=== PATIENT | male | born 1970 | race Caucasian/White ===

== ENCOUNTER 2022-02-01 07:28 | Day surgery (SDC) | payer OTHER, SELFPAY ==
[2022-02-01] VITALS (7 sets, daily range): BP systolic 87–122; BP diastolic 49–79; PULSE 51–67; RESP 16–18; TEMP 36.4–37; O2SAT 98–100; BMI 23.3
[2022-02-01] MEDS: Lactated Ringers 1,000 ML 15 ML IV (07:45)
--- NOTE | 2022-02-01 08:45 | H&P.OPEN ---
HPI - General HPI Narrative BARRY MAHAJAN, is a 51 M who presents for screening colonoscopy. Patient has never had a screening colonoscopy in the past. He denies any abdominal pain or blood in the stool. He has a family history only in his grandfather of colon cancer [facility] Medical History Alcohol use Anxiety Gastric reflux High cholesterol History of stress test Non-smoker Home Medications alprazolam 0.5 mg PO PRN PRN 01/29/22 [History Last Taken Unknown] atorvastatin 30 mg PO DAILY 01/29/22 [History Last Taken Unknown] coenzyme Q10 [CoQ-10] 100 mg PO DAILY 01/29/22 [History Last Taken 01/27/22] melatonin 10 mg PO DAILY 01/29/22 [History Last Taken Unknown] multivitamin 1 tab PO DAILY 01/29/22 [History Last Taken Unknown] omega-3 fatty acids [Fish Oil] 1,000 mg PO DAILY 01/29/22 [History Last Taken 01/27/22] turmeric 400 mg PO DAILY 01/29/22 [History Last Taken 01/27/22] Allergy/AdvReac Type Severity Reaction Status Date / Time No Known Allergies Allergy Verified 02/01/22 07:46 Surgical History (Updated 01/29/22 @ 14:10 by Laurie Pompa) Hx of [facility] Social History Smoking Status: Never smoker Past Medical/Surgical History Planned Operation Planned Operative Procedure/s: COLONOSCOPY Previous Hospitalizations/Surgeries HX Hospitalizations: No Any Problems With Anesthesia: No You/Your Family Experience Fever (Hyperthermia) With Anes: No Cholinesterase deficiency: No Cardiovascular Hx Hypertension: No Respiratory Hx Sleep Apnea: No Hx Respiratory Tract Infection/Cold (presently): No Do You Snore Loudly (louder than talking or can be heard): Yes Do You Often Feel Tired/ Fatigued/ Sleepy Dring Daytime?: No Has Anyone Observed You Stop Breathing During Sleep?: No Result (for STOP score): Negative Smoking Status: Never smoker Neurological Does patient have nerve stimulator: No Miscellaneous Recent Exposure to Contagious Disease: No Allergies No Known Allergies Allergy (Verified 02/01/22 07:46) Discharge Is Pt Admitted From a Group Home, or a Detention: No After D/C, Where Do you Plan to Go: Return Home Vital Signs Vital Signs Vital Signs: 02/01/22 07:47 Temperature 97.5 F L Temperature Source Temporal Pulse Rate 67 Respiratory Rate 18 Respiratory Pattern Normal Blood Pressure 122/79 H Blood Pressure Mean 93 Blood Pressure Source Monitor Blood Pressure Position Semi-Fowlers Blood Pressure Location Left Arm Pulse Ox 98 Oxygen Delivery Method Room Air Weight Weight: 147 lb 11.355 oz Body Mass Index (BMI) 23.3 Physical Exam Const alert and oriented x3 Resp normal respiratory effort and normal air movement Cardio regular rate and regular rhythm GI soft to palpation, non-tender and non-distended Assessment & Plan Assessment/Plan (1) Encounter for screening for malignant neoplasm of colon: PLAN: I explained endoscopy in detail to the patient. I explained the risks including but not limited to stroke or heart attack with anesthesia, perforation of the GI tract, bleeding, infection. I explained that any of these could necessitate further emergency surgery. The patient understands and all questions were answered sufficiently. The patient wishes to proceed with procedure. Derrick Diego MD Pager: [facility] [address] [place] [address], [address] [place] [address] Office: Surgery Risks - Colonoscopy Risks Include but are not Limited To: Risks include but are not limited to: Bleeding, perforation requiring further surgery, inability to complete colonoscopy requiring barium enema.
--- NOTE | 2022-02-01 09:15 | OP.COLON_ITS ---
Patient Name: Manuelito Akhtar Procedure Date: 02/01/2022 8:58 AM Date of : 1970 Age: 51 Procedure: Colonoscopy Indications: Screening for colorectal malignant neoplasm Providers: Derrick Diego MD Medicines: Monitored Anesthesia Care Patient Profile: This is a 51 year old male. Refer to note in patient chart for documentation of history and physical. Last Colonoscopy: none. The patient's first colonoscopy is today. Complications: No immediate complications. Procedure: Pre-Anesthesia Assessment: - Prior to the procedure, a History and Physical was performed, and patient medications and allergies were reviewed. The patient's tolerance of previous anesthesia was also reviewed. The risks and benefits of the procedure and the sedation options and risks were discussed with the patient. All questions were answered, and informed consent was obtained. Prior Anticoagulants: The patient has taken no previous anticoagulant or antiplatelet agents. After reviewing the risks and benefits, the patient was deemed in satisfactory condition to undergo the procedure. After I obtained informed consent, the scope was passed under direct vision. Throughout the procedure, the patient's blood pressure, pulse, and oxygen saturations were monitored continuously. The Colonoscope was introduced through the anus and advanced to the cecum, identified by appendiceal orifice and ileocecal valve. The colonoscopy was performed without difficulty. The patient tolerated the procedure well. The quality of the bowel preparation was good. Scope In: 9:00:39 AM Scope Withdrawal Time 0 hours 5 minutes 4 seconds Scope Out: 9:12:22 AM Total Procedure Duration Time 0 hours 11 minutes 43 seconds Findings: The entire examined colon appeared normal on direct and retroflexion views. Impression: - The entire examined colon is normal on direct and retroflexion views. - No specimens collected. Recommendation: - Discharge patient to home. - Resume previous diet. - Continue present medications. - Repeat colonoscopy in 10 years for screening purposes. Procedure Code(s): --- Professional --- 72402, Colonoscopy, flexible; diagnostic, including collection of specimen(s) by brushing or washing, when performed (separate procedure) Diagnosis Code(s): --- Professional --- Z12.11, Encounter for screening for malignant neoplasm of colon CPT copyright 2017 [employer]. All rights reserved. The codes documented in this report are preliminary and upon braille coder review may be revised to meet current compliance requirements. Derrick Diego MD 02/01/2022 9:15:01 AM This report has been signed electronically. Number of Addenda: 0 Note Initiated On: 02/01/2022 8:58 AM
--- NOTE | 2022-02-01 09:16 | OP.CCLET_ITS ---
02/01/2022 Zach Shaw [address] [place] [address] Re : Colonoscopy procedure for Manuelito Akhtar Dear Dr. Shaw This procedure was performed on Tuesday, February 01, 2022. My impressions and recommendations are as follows: Impressions : - The entire examined colon is normal on direct and retroflexion views. - No specimens collected. Recommendations : - Discharge patient to home. - Resume previous diet. - Continue present medications. - Repeat colonoscopy in 10 years for screening purposes. My findings are described in the full procedure note, which is enclosed. If I can be of further assistance, please feel free to contact me at Doctor phone number(s): , Work: . Sincerely, Derrick Diego MD 02/01/2022 9:15:01 AM This report has been signed electronically.
== END 2022-02-01 10:03 | disposition home or self-care (01) ==
LOC: EN 07:33 → AC 07:33
PROVIDERS: PCP Family Medicine; Referring Provider Family Medicine; Visit Provider Surgery
PROC: 0DJD8ZZ Inspection of Lower Intestinal Tract, Via Natural or Artificial Opening Endoscopic (ICD-10-PCS; CPT 45378; principal; 2022-02-01 08:25)
DX: Z12.11 Encounter for screening for malignant neoplasm of colon (principal); E78.00 Pure hypercholesterolemia, unspecified; Z80.0 Family history of malignant neoplasm of digestive organs; K21.9 Gastro-esophageal reflux disease without esophagitis; F41.9 Anxiety disorder, unspecified
CPT/HCPCS: 45378; J7120; J2405

== ENCOUNTER → 2022-10-01 | Outpatient (CLI) | payer OTHER, SELFPAY | END | disposition home or self-care (01) | LOC: LAB.FUTURE 09:56 | PROVIDERS: PCP Family Medicine; Visit Provider Family Medicine | DX: R68.82 Decreased libido (principal) ==

== ENCOUNTER → 2023-08-05 | Outpatient (CLI) | payer OTHER, SELFPAY ==
--- NOTE | 2023-08-05 09:58 | RAD_ITS ---
EXAM: XR THORACIC SPINE, 3 VIEWS CLINICAL INDICATION: PAIN TECHNIQUE: Frontal, lateral and swimmer''s views of the thoracic spine. COMPARISON: No relevant prior studies available. FINDINGS: VERTEBRAE: Mild multilevel endplate osteophytosis and facet arthrosis. Preserved vertebral body height. No fracture. No spondylolisthesis. Preservation of the normal thoracic kyphosis. DISC SPACES: Multilevel intervertebral disc height loss. RAD/Thoracic Spine 3 Views IMPRESSION: Degenerative changes. No acute osseous abnormalities. Electronically Signed: Jeffrey Wallace DO at 20:26 EST ,
== END | disposition home or self-care (01) ==
LOC: MTRAD 09:57
PROVIDERS: PCP Family Medicine; Referring Provider Family Medicine; Visit Provider Family Medicine
DX: M54.9 Dorsalgia, unspecified (principal)
CPT/HCPCS: 72072

== ENCOUNTER 2025-04-08 09:02 | Inpatient (IN) | payer OTHER, SELFPAY ==
[2025-04-08] VITALS (12 sets, daily range): BP systolic 106–147; BP diastolic 60–98; PULSE 62–115; RESP 11–20; TEMP 35.6–37; O2SAT 93–98; BMI 23.6
--- NOTE | 2025-04-08 10:07 | EX.ED.DYSGE1 ---
HPI History of Present Illness Chief Complaint: ETOH Intox Narrative Narrative: Chief complaint and HPI: Requesting detox for alcohol. 54-year-old gentleman with past medical history of anxiety and daily alcohol abuse with wine presents requesting detox. Patient states he drinks a bottle of wine a day. His last drink of alcohol was approximately 6 hours ago. He has been through detox in the past with opiates but never for alcohol. He denies any fever, chills, shortness of breath, chest pain, abdominal pain, nausea, vomiting. States he is starting to get mildly anxious. He denies any other illicit drug abuse. Denies any suicidal or homicidal ideation. Review of systems: See HPI Medications: As listed on the chart Allergies: As listed on the chart PFSH: Per chart Vital signs: As listed on the chart. Reviewed. Physical exam: Gen: A&O x3, tearful Head: Normocephalic, atraumatic Eyes: No sclera icterus, conjunctiva clear, PERRL ENT: Mildly dry mucous membranes CV: Tachycardic, regular rhythm, no murmurs, no peripheral edema Resp: Lungs CTA BL, no w/r/c GI: Abd soft, non-distended, non-tender, no r/r/g Musc: Full ROM, no deformity Skin: Warm, dry Neuro: Alert, oriented, grossly intact, sensation intact Psych: Cooperative, intermittently tearful [facility] Medical History Anxiety Alcohol use High cholesterol Gastric reflux Non-smoker History of stress test Home Medications ?Medication ?Instructions ?Recorded ?Last Taken ?Type alprazolam 0.5 mg tablet 0.5 mg PO PRN PRN Anxiety 01/29/22 Unknown History atorvastatin 20 mg tablet 30 mg PO DAILY 01/29/22 Unknown History coenzyme Q10 100 mg capsule 100 mg PO DAILY 01/29/22 01/27/22 History (CoQ-10) melatonin 10 mg tablet,extended 10 mg PO QHS 01/29/22 Unknown History release multivitamin 1 tab PO DAILY 01/29/22 Unknown History omega-3 fatty acids 1,000 mg PO DAILY 01/29/22 01/27/22 History turmeric 400 mg capsule 400 mg PO DAILY 01/29/22 01/27/22 History paroxetine HCl 10 mg tablet 5 mg PO DAILY anxiety 04/08/25 Unknown History Allergy/AdvReac Type Severity Reaction Status Date / Time No Known Allergies Allergy Verified 04/08/25 09:04 Family History (Updated 04/08/25 @ 16:[address] Gaurang Leslie DO) Other Alcoholism Surgical History Hx of LASIK Social History (Updated 04/08/25 @ 16:[address] Gaurang Leslie DO) Smoking Status: Never smoker alcohol intake: current Alcohol type: wine details: Bottle of wine a day EXAM Physical Exam Const Vital Signs: 04/08/25 09:03 04/08/25 09:03 04/08/25 10:03 Temperature 96.1 F L 98.6 F Temperature Source Temporal Oral Pulse Rate 111 H 78 85 Respiratory Rate 20 H 16 14 Blood Pressure 147/98 H 134/78 H 136/89 H Blood Pressure Mean 114 96 104 Blood Pressure Source Monitor Blood Pressure Position Semi-Fowlers Blood Pressure Location Right Arm Pulse Ox 94 98 97 Oxygen Delivery Method Room Air Room Air 04/08/25 11:11 04/08/25 11:15 04/08/25 11:26 Temperature Temperature Source Pulse Rate 73 71 Respiratory Rate 16 11 L Blood Pressure 116/79 106/80 Blood Pressure Mean 91 89 Blood Pressure Source Blood Pressure Position Blood Pressure Location Pulse Ox 94 93 Oxygen Delivery Method Room Air 04/08/25 11:30 04/08/25 12:04 04/08/25 13:00 Temperature Temperature Source Pulse Rate 93 94 99 Respiratory Rate 17 16 16 Blood Pressure 114/73 113/80 112/78 Blood Pressure Mean 85 91 89 Blood Pressure Source Blood Pressure Position Blood Pressure Location Pulse Ox 96 94 98 Oxygen Delivery Method Room Air Room Air MDM MDM MDM Narrative Medical decision making narrative: 54-year-old gentleman with past medical history of anxiety and daily alcohol abuse with wine presents requesting detox. Patient states he drinks a bottle of wine a day. His last drink of alcohol was approximately 6 hours ago. He has been through detox in the past with opiates but never for alcohol. Denies any suicidal or homicidal ideation. Ativan, Zofran, NS bolus ordered. Laboratory workup ordered for detox admission. Differential diagnosis includes but is not limited to alcohol abuse, alcohol intoxication, electrolyte abnormality, dehydration. CBC unremarkable. CMP unremarkable except for alcoholic ketosis without SANAM or significant electrolyte abnormality. Patient does have mild AST transaminitis of 39. Likely secondary to his alcohol abuse. Urine drug screen negative. Ethanol 313. Patient will warrant admission for detox. Hospitalist accepted admission. Impression: 1. Alcohol intoxication with alcohol abuse 2. Alcoholic ketosis 3. AST transaminitis secondary to alcohol abuse 4. Requesting alcohol detox Lab Data Labs: Laboratory Results - last 24 hr 04/08/25 04/08/25 10:01 10:15 WBC 9.1 RBC 5.02 Hgb 16.3 Hct 47.9 MCV 95.4 H MCH 32.5 H MCHC 34.0 RDW Std Deviation 43.0 RDW Coeff of Darshan 12.2 Plt Count 214 MPV 8.9 Immature Gran % (Auto) 0.400 Neut % (Auto) 71.4 H Lymph % (Auto) 24.2 [place] % (Auto) 3.1 Eos % (Auto) 0.0 Baso % (Auto) 0.9 Absolute Neuts (auto) 6.5 Absolute Lymphs (auto) 2.20 Nucleated RBC % 0 Sodium 142 Potassium 3.9 Chloride 100 Carbon Dioxide 24.7 Anion Gap 17 H BUN 17 Creatinine 0.88 Estim Creat Clear Calc 87.60 Est GFR (MDRD) Non-Af 103 BUN/Creatinine Ratio 18.9 Glucose 99 Calcium 9.0 Magnesium 2.6 H Total Bilirubin 0.43 AST 39 H ALT 38 Alkaline Phosphatase 58 Total Protein 7.5 Albumin 4.7 Globulin 2.7 Albumin/Globulin Ratio 1.7 Urine Opiates Screen NEGATIVE U Buprenorphine Qual NEGATIVE Ur Oxycodone Screen NEGATIVE Urine Methadone Screen NEGATIVE Urine Fentanyl Screen NEGATIVE Ur Barbiturates Screen NEGATIVE Ur Phencyclidine Scrn NEGATIVE Ur Amphetamines Screen NEGATIVE U Benzodiazepines Scrn NEGATIVE Urine Cocaine Screen NEGATIVE U Cannabinoids Screen NEGATIVE Ethyl Alcohol 313.0 H* Discharge Plan Disposition Disposition: Acute Care Hospital [facility] Discharge Date/Time: 04/08/25 14:46
[2025-04-08 10:14] LABS: Hematocrit 47.9 % (40-54); Hemoglobin 16.3 g/dL (13.0-16.5); Immature Granulocytes Count 0.040 X10^3/uL (0.0-0.0); Mean Corp Hgb Conc 34.0 g/dL (32-36); Mean Corpuscular Volume 95.4 fL (80-94); Mean Platelet Vol. 8.9 fl (6.2-12.0); NRBC Flagged by Analyzer 0 % (0-5); Platelet Count 214 K/mm3 (150-450); RBC Distribution Width CV 12.2 % (11.6-14.6); RBC Distribution Width SD 43.0 fl (35.1-43.9); Red Blood Count 5.02 M/mm3 (4.6-6.2); White Blood Count 9.1 K/mm3 (4.4-11.0)
[2025-04-08] MEDS: 0.9% Normal Saline (1000mL) 1,000 ML 999 ML IV (10:17)
[2025-04-08] MEDS: Lorazepam 2 MG/ML WCH Syringe 1 MG IV (10:17)
[2025-04-08 10:59] LABS: AST(SGOT) 39 U/L (<=37); Alanine Aminotransfer ALT/SGPT 38 U/L (<=46); Albumin, Serum 4.7 g/dL (3.5-5.0); Alkaline Phosphatase 58 U/L (40-129); Anion Gap 17 (5-15); BUN 17 mg/dL (4-19); BUN/Creat Ratio 18.9 RATIO (10-20); Calcium,Total 9.0 mg/dL (7.6-11.0); Carbon Dioxide 24.7 mmol/L (21.0-32.0); Chloride 100 mmol/L (98-108); Estimated Creatinine Clearance 87.60 ml/min (50-250); Globulin 2.7 g/dL (2.2-4.2); Glucose 99 mg/dL (70-99); Magnesium 2.6 mg/dL (1.5-2.2); Potassium 3.9 mmol/L (3.3-5.1)
[2025-04-08 11:05] LABS: Alcohol, Blood (Medical)-Serum 313.0 mg/dL (<=10.0)
[2025-04-08 12:14] LABS: Barbiturate Urine NEGATIVE (< 200 ng/mL); Benzodiazepine Urine NEGATIVE (< 200 ng/mL); PCP Urine NEGATIVE (< 25 ng/mL); THC Urine NEGATIVE (< 50 ng/mL)
--- OUTSIDE RECORDS SUMMARY | 2025-04-08 12:28 | XMS RPT_ITS | CCD ---
Author Organization [facility] Care Team Providers Care Dye Operator Name Role Phone Dr. Derrick Diego Attending Provider [phone] Dr. Derrick Diego Other Provider Dr. Zach Shaw Primary Care Provider [phone] Dr. Zach Shaw Referring Provider Zach Shaw Primary Care Unavailable Derrick Diego Attending Unavailable Derrick Diego Consulting Unavailable Zach Shaw Referring Unavailable Zach Shaw Primary Care Unavailable Derrick Diego Attending Unavailable Zach Shaw Referring Unavailable Zach Shaw Attending Unavailable Zach Shaw Primary Care Unavailable Medications Current Medications Medication Drug Class(es) Dates Sig (Normalized) Sig (Original) ALPRAZolam 0.5 mg oral tablet (3 sources) Benzodiazepine Start: 01-29-2022 Alprazolam Active 0.5 MG PO NEEDED January 28, 2022 11:00pm atorvastatin 20 mg oral tablet (3 sources) HMG-CoA Reductase Inhibitor Start: 01-29-2022 take 30 mg by mouth once daily Atorvastatin Active 30 MG PO DAILY January 28, 2022 11:00pm melatonin 10 mg extended release oral tablet (3 sources) Start: 01-29-2022 take 10 mg by mouth once daily Melatonin Active 10 MG PO DAILY January 28, 2022 11:00pm Multivitamin preparation (3 sources) Start: 01-29-2022 take 1 tablet by mouth once daily Multivitamin Active 1 TABLET PO DAILY January 29, 2022 2:01pm Start: 01-29-2022 take 1 tablet by dave th once daily Multivitamin Active 1 TABLET PO DAILY January 28, 2022 11:00pm [facility]-3 Fatty Acids (Fish Oil) Capsule (3 sources) Start: 01-29-2022 take 1 capsule by mouth once daily [facility]-3 Fatty Acids (Fish Oil) Capsule Active 1000 MG PO DAILY January 29, 2022 2:01pm Start: 01-29-2022 take 1 capsule by mouth once d aily [facility]-3 Fatty Acids (Fish Oil) Capsule Active 1000 MG PO DAILY January 28, 2022 11:00pm Turmeric extract (3 sources) Start: 01-29-2022 take 400 mg by mouth once daily Turmeric Active 400 MG PO DAILY January 29, 2022 2:01pm Start: 01-29-2022 take 400 mg by mouth once oriana y Turmeric Active 400 MG PO DAILY January 28, 2022 11:00pm ubidecarenone 100 mg oral ca psule (3 sources) Start: 01-29-2022 Coenzyme Q10 ( Coq-10) 100 mg Capsule Active 100 MG PO DAILY January 28, 2022 11:00pm Problems Problem Classification Problem Date Documented Da te Episodic/Chronic Other screening for suspected conditions (not mental disorders or infectious disease) (5 sources) Patient encounter status; Translations: [Encounter for screening for malignant neoplasm of colon] Onset: 02-05-2022 Episodic Residual codes; unclassified (1 source) Decreased libido; Translations: [Decreased libido] Onset: 10-15-2022 Episodic Results Test Name Value Interpretation Reference Range Facility Colonoscopy Reporton 022 Colonoscopy Report [facility] Medical Records Department [address] [place] [id number] Colonoscopy Report MR#: [id number] Acct: [id number] Name: MANUELITO AKHTAR Rep #: [id number] : 1970 51 From: Derrick Diego MD PCP: Dr. Zach Shaw, DO Status:REG [facility] [place] Patient Name: Manuelito Akhtar Procedure Date: 02/01/2022 8:58 AM Date of : 1970 Age: 51 Procedure: Colonoscopy Indications: Screening for colorectal malignant neoplasm Providers: Derrick Diego MD Medicines: Monitored Anesthesia Care Patient Profile: This is a 51 year old male. Refer to note in patient chart for documentation of history and physical. Last Colonoscopy: none. The patient's first colonoscopy is today. Complications: No immediate complications. Procedure: Pre-Anesthesia Assessment: - Prior to the procedure, a History and Physical was performed, and patient medications and allergies were reviewed. The patient's tolerance of previous anesthesia was also reviewed. The risks and benefits of the procedure and the sedation options and risks were discussed with the patient. All questions were answered, and informed consent was obtained. Prior Anticoagulants: The patient has taken no previous anticoagulant or antiplatelet agents. After reviewing the risks and benefits, the patient was deemed in satisfactory condition to undergo the procedure. After I obtained informed consent, the scope was passed under direct vision. Throughout the procedure, the patient's blood pressure, pulse, and oxygen saturations were monitored continuously. The Colonoscope was introduced through the anus and advanced to the cecum, identified by appendiceal orifice and ileocecal valve. The colonoscopy was performed without difficulty. The patient tolerated the procedure well. The quality of the bowel preparation was good. Scope In: 9:00:39 AM Scope Withdrawal Time 0 hours 5 minutes 4 seconds Scope Out: 9:12:22 AM Total Procedure Duration Time 0 hours 11 minutes 43 seconds Findings: The entire examined colon appeared normal on direct and retroflexion views. Impression: - The entire examined colon is normal on direct and retroflexion views. - No specimens collected. Recommendation: - Discharge patient to home. - Resume previous diet. - Continue present medications. - Repeat colonoscopy in 10 years for screening purposes. Procedure Code(s): --- Professional --- 49919, Colonoscopy, flexible; diagnostic, including collection of specimen(s) by brushing or washing, when performed (separate procedure) Diagnosis Code(s): --- Professional --- Z12.11, Encounter for screening for malignant neoplasm of colon CPT copyright 2017 [employer]. All rights reserved. The codes documented in this report are preliminary and upon confectionery laboratory manager review may be revised to meet current compliance requirements. Derrick Diego MD 02/01/2022 9:15:01 AM This report has been signed electronically. Number of Addenda: 0 Note Initiated On: 02/01/2022 8:58 AM 02/01/22 0915 Date __ Derrick Diego MD Cosigner Signature: Date __ (if indicated) CC: Dr. Derrick Diego MD; Dr. Zach Shaw DO Date Dictated: 02/01/22 0858 Date Transcribed: Dry Transfer Worker: KATIE Signed Normal [facility] CNOVon 02-02-2018 CNOV Office Visit (UCWSTR) GIOVANA AKHTAR ([id number]) 1970 MDate Time Provider Department02/02/18 5:00 PM CIARA BALDWIN [facility] During your visit today, we recorded the following information about you: Temperature Pulse Respiration Blood pressure 98.7 degrees 76/minute 16/minute 104/64 Weight 68 kgCiara Baldwin 02/02/2018 5:52 PM SignedFlu (Influenza)What is the flu?The flu is a viral infection of the nose, throat, trachea, and bronchi thatoccurs every winter. Major epidemics every 3 or 4 years (for example, Asianinfluenza). The main symptoms are a stuffy nose, sore throat, and naggingcough. There may be more muscle pain, headache, fever, and chills than coldsusually cause.For most people, influenza is just a bad cold and bed rest is not necessary.Flu is not dangerous to people who are otherwise healthy.How can I take care of my child?The treatment of flu depends on a child's main symptoms and is no differentfrom the treatment for other viral respiratory infections. Bed rest is notnecessary.Fever or aches Use acetaminophen (Tylenol) every 6 hours or ibuprofen (Advil)every 8 hours for fever over 102?F (39?C). Children and adolescents who mayhave influenza should never take aspirin because it may cause Tennille's syndrome.Cough or hoarseness For children over age 4 give cough drops. If your child is1 to 4 years old, give corn syrup (1/2 to 1 teaspoon as needed).Sore throat Use hard candy for children over 4 years old. Warm chicken brothmay also help children over 1 year old.Stuffy nose Warm-water or saline nosedrops and suction (or nose blowing) willopen most blocked noses. Use nasal washes at least four times a day or wheneveryour child can't breathe through the nose. Saline nosedrops are made by adding1/2 teaspoon of salt to 1 cup of warm water.Contagiousness Influenza spreads rapidly because the incubation period is only24 to 36 hours and the virus is very contagious. Your child may return to daycare or school after the fever is gone and he feels up to it.Does my child need antiviral medicine?Most healthcare providers do not use antiviral medicines because they onlyreduce the time that your child is sick by a day or so. Usually the runny noselasts 7 to 14 days and the cough lasts 2 to 3 weeks. All antiviral medicinesmust be given within 48 hours of the start of influenza symptoms to have aneffect. Antiviral medicine is usually only used to treat children at high-riskfor complications from the flu. Talk with your healthcare provider about this.Does my child need a flu shot?Yearly flu shots have always been recommended for high-risk children over 6months of age. These children often have complications from influenza, such aspneumonia. Parents and siblings of high-risk children should also get a flushot. Children are considered high-risk if they have the following conditions:Lung disease, such as asthmaHeart disease, such as a congenital heart diseaseMuscle disease, such as muscular dystrophyMetabolic disease, such as diabetesRenal disease, such as nephrotic syndromeCancer or immune system conditionsDiseases requiring long-term aspirin therapy.In 2006, the [employer] added all children age 6 months to5 years to the list of people who should get a flu shot. Recent research hasshown that healthy children younger than 24 months are at as great a risk ofcomplications as children with the high-risk conditions listed above.When should I call my child's healthcare provider?Call IMMEDIATELY if:Your child is having trouble breathing.Your child starts to act very sick.Call during office hours if:Your child develops any complications such as an earache, sinus pain orpressure, or a fever lasting over 3 days.You have other questions or concerns.Published by [employer].This content is reviewed periodically and is subject to change as new healthinformation becomes available. The information is intended to inform andeducate and is not a replacement for medical evaluation, advice, diagnosis ortreatment by a healthcare professional.Written by Augusto Wang M.D., author of Your Child's Health, [employer].Copyright ? 2007 [employer] and/or one of its subsidiaries. AllRights Reserved.Copyright ? [employer] Reference Systems 2008Pediatric AdvisorECiara casey 02/02/2018 7:00 PM SignedSubjectiveHPIPt presents with c/o one week hx sore throat, cough , nasal congestion,headaches.States sx began abruptly with fever, chills and myalgias.Tmax 103.Nose bleed today.Cough is frequent, moist, harsh, nonproductive.Cough is keeping pt awake at night.+chest tightness at times.Has been taking Mucinex severe and ibuprofen.+popping and pressure to bilateral ears.Review of SystemsConstitutional: Positive for chills, fever and malaise/fatigue.HENT: Positive for congestion and sore throat. Negative for ear pain and sinuspain.Respiratory: Positive for cough. Negative for hemoptysis, sputum production,shortness of breath and wheezing.Musculoskeletal: Positive for myalgias.Skin: Negative for rash.ObjectivePhysical ExamConstitutional: He is oriented to person, place, and time and well-developed,well-nourished, and in no distress. No distress.HENT:Head: Normocephalic.Right Ear: Hearing, external ear and ear canal normal. Tympanic membrane isperforated. Tympanic membrane is not bulging.Left Ear: Hearing, tympanic membrane, external ear and ear canal normal.Tympanic membrane is not erythematous and not bulging.Nose: Nose normal. No rhinorrhea. Right sinus exhibits no maxillary sinustenderness and no frontal sinus tenderness. Left sinus exhibits no maxillarysinus tenderness and no frontal sinus tenderness.Mouth/Throat: Uvula is midline, oropharynx is clear and moist and mucousmembranes are normal. No oropharyngeal exudate. Posterior oropharyngealerythema: clear drainage.Eyes: Conjunctivae are normal. Pupils are equal, round, and reactive to light.Right eye exhibits no discharge. Left eye exhibits no discharge.Neck: Neck supple.Cardiovascular: Normal rate, regular rhythm and normal heart sounds. Examreveals no gallop and no friction rub.No murmur heard.Pulmonary/Chest: Effort normal and breath sounds normal. No accessory muscleusage. No respiratory distress. He has no decreased breath sounds (CTA, goodair movement throughout. pulse ox 97%). He has no wheezes. He has no rhonchi.He has no rales.Lymphadenopathy: He has no cervical adenopathy.Neurological: He is alert and oriented to person, place, and time.Skin: Skin is warm and dry. He is not diaphoretic.BP 104/64 Pulse 76 Temp 37.1 ?C (98.7 ?F) (Left Tympanic) Resp 16 Wt 68 kg (150 lb) SpO2 97%.Patient presents with:Sore Throat: x 1 weekFever: x 1 weekHeadache: x 1 weekCough: x 1 weekPain, Sinus: x 1 weekNo past medical history on file.No past surgical history on file.ALLERGIES AmoxicillinMEDICATIONScefdinir (OMNICEF) 300 mg capsule Take 1 capsule by mouth twice daily for 10days.ibuprofen (MOTRIN) 800 mg tablet Take 1 tablet by mouth every 8 hours as neededfor Pain. Take with food.PHENYLephrine 0.125% (AWA-SYNEPHRINE) 0.125 % nasal drops Use 1 Drop in thenose every 4 hours as needed.codeine-guaiFENesin (ROBITUSSIN AC) 10-100 mg/5 mL syrup Take 5-10 mL by mouthfour times daily as needed for Cough for up to 5 days. May cause drowsiness.ibuprofen (MOTRIN) 800 mg tablet Take 800 mg by mouth every 6 hours as needed.Benzonatate 200 mg capsule Take 200 mg by mouth three times daily as needed forCough.predniSONE (DELTASONE) 20 mg tablet Take 1 tablet by mouth once daily. Takedaily with food.No family history on file.Social HistorySubstance Use Topics- Smoking status: Former Smoker- Smokeless tobacco: Never Used- Alcohol use Not on fileASSESSMENT/PLAN:1. Influenza-like illness - ICD9: 799.89, ICD10: R69 (primary diagnosis)- IBUPROFEN 800 MG TABLET2. Sore throat - ICD9: 462, ICD10: J02.9- Rapid Strep negative in the office today and Throat culture pending- Discussed supportive care treatment with fluids, rest and analgesia.- The patient should follow up in 3-5 days if symptoms persist or worsen- Call back if drooling, increased temperature, symptoms of dehydration and/orstill sick in one week- RAPID STREP TEST B/O- GROUP A STREPTOCOCCUS BY PCR3. Cough - ICD9: 786.2, ICD10: R05- PHENYLEPHRINE 0.125 % NASAL DROPS- CODEINE 10 MG-GUAIFENESIN 100 MG/5 ML ORAL LIQUID4. Acute otitis media, right - ICD9: 382.9, ICD10: H66.91- CEFDINIR 300 MG CAPSULEThe patient is instructed to return or seek emergency treatment if symptomsbecome worse or with any acute change in condition.The patient verbalizes understanding and is in agreement with plan of care.Ciara Baldwin, CNPReferring Provider: SELF [200]Allergies As of Date: 02/02/2018 Noted Allergy ReactionAMOXICILLIN 02/02/2018 6 - DiarrheaDate Reviewed: 02/02/2018Reviewed by: Jewell Hart LPN - Fully AssessedReason for Visit: Sore Throat [200] Cmt: x 1 week Fever [47] Cmt: x 1 week Headache [52] Cmt: x 1 week Cough [28] Cmt: x 1 week Pain, Sinus [857] Cmt: x 1 weekPrimary Visit Diagnosis:Influenza-like illness [R69] Other Visit Diagnoses:Sore throat [J02.9] Cough [R05] Acute otitis media, right [H66.91]Order(s):RAPID STREP TEST B/O [[id number]] Order #: [id number] GROUP A STREPTOCOCCUS BY PCR [SQGASPCR] Order #: [id number] cefdinir (OMNICEF) 300 mg capsuleTake 1 capsule by mouth twice daily for 10 days.Disp: 20 capsuleRfl: 0 ibuprofen (MOTRIN) 800 mg tabletTake 1 tablet by mouth every 8 hours as needed for Pain. Take with food.Disp: 60 tabletRfl: 0 PHENYLephrine 0.125% (AWA-SYNEPHRINE) 0.125 % nasal dropsUse 1 Drop in the nose every 4 hours as needed.Disp: 120 mLRfl: 0 codeine-guaiFENesin (ROBITUSSIN AC) 10-100 mg/5 mL syrupTake 5-10 mL by mouth four times daily as needed for Cough for up to 5 days. May cause drowsiness.Disp: 120 mLRfl: 0Prescriptions as of 02/02/2018 Sig: CEFDINIR 300 MG CAPSULE Take 1 capsule by mouth twice* IBUPROFEN 800 MG TABLET Take 1 tablet by mouth every * PHENYLEPHRINE 0.125 % NASAL D* Use 1 Drop in the nose every * CODEINE 10 MG-GUAIFENESIN 100* Take 5-10 mL by mouth four ti* IBUPROFEN 800 MG TABLET Take 800 mg by mouth every 6 * BENZONATATE 200 MG CAPSULE Take 200 mg by mouth three ti* PREDNISONE 20 MG TABLET Take 1 tablet by mouth once d*Problem List As Of Date: 02/02/2018(None) Other instructions from your clinician: Flu (Influenza) What is the flu? The flu is a viral infection of the nose, throat, trachea, and bronchi that occurs every winter. Major epidemics every 3 or 4 years (for example, influenza). The main symptoms are a stuffy nose, sore throat, and nagging cough. There may be more muscle pain, headache, fever, and chills than colds usually cause. For most people, influenza is just a bad cold and bed rest is not necessary. Flu is not dangerous to people who are otherwise healthy. How can I take care of my child? The treatment of flu depends on a child's main symptoms and is no different from the treatment for other viral respiratory infections. Bed rest is not necessary. Fever or aches Use acetaminophen (Tylenol) every 6 hours or ibuprofen (Advil) every 8 hours for fever over 102?F (39?C). Children and adolescents who may have influenza should never take aspirin because it may cause Tennille's syndrome. Cough or hoarseness For children over age 4 give cough drops. If your child is 1 to 4 years old, give corn syrup (1/2 to 1 teaspoon as needed). Sore throat Use hard candy for children over 4 years old. Warm chicken broth may also help children over 1 year old. Stuffy nose Warm-water or saline nosedrops and suction (or nose blowing) will open most blocked noses. Use nasal washes at least four times a day or whenever your child can't breathe through the nose. Saline nosedrops are made by adding 1/2 teaspoon of salt to 1 cup of warm water. Contagiousness Influenza spreads rapidly because the incubation period is only 24 to 36 hours and the virus is very contagious. Your child may return to day care or school after the fever is gone and he feels up to it. Does my child need antiviral medicine? Most healthcare providers do not use antiviral medicines because they only reduce the time that your child is sick by a day or so. Usually the runny nose lasts 7 to 14 days and the cough lasts 2 to 3 weeks. All antiviral medicines must be given within 48 hours of the start of influenza symptoms to have an effect. Antiviral medicine is usually only used to treat children at high-risk for complications from the flu. Talk with your healthcare provider about this. Does my child need a flu shot? Yearly flu shots have always been recommended for high-risk children over 6 months of age. These children often have complications from influenza, such as pneumonia. Parents and siblings of high-risk children should also get a flu shot. Children are considered high-risk if they have the following conditions: Lung disease, such as asthma Heart disease, such as a congenital heart disease Muscle disease, such as muscular dystrophy Metabolic disease, such as diabetes Renal disease, such as nephrotic syndrome Cancer or immune system conditions Diseases requiring long-term aspirin therapy. In 2006, the [employer] added all children age 6 months to 5 years to the list of people who should get a flu shot. Recent research has shown that healthy children younger than 24 months are at as great a risk of complications as children with the high-risk conditions listed above. When should I call my child's healthcare provider? Call IMMEDIATELY if: Your child is having trouble breathing. Your child starts to act very sick. Call during office hours if: Your child develops any complications such as an earache, sinus pain or pressure, or a fever lasting over 3 days. You have other questions or concerns. Published by [employer]. This content is reviewed periodically and is subject to change as new health information becomes available. The information is intended to inform and educate and is not a replacement for medical evaluation, advice, diagnosis or treatment by a healthcare professional. Written by Augusto Wang M.D., author of Your Child's Health, [employer]. Copyright ? 2007 [employer] and/or one of its subsidiaries. All Rights Reserved. Copyright ? [employer] Reference Systems 2008 Pediatric AdvisorPrescriptions ordered this encounter Disp Refills Start End CEFDINIR 300 MG CAPSULE 20 c* 0 02/02/2018 02/12/2018 Route: ORAL Sig: Take 1 capsule by mouth twice daily for 10 days. IBUPROFEN 800 MG TABLET 60 t* 0 02/02/2018 Route: ORAL Sig: Take 1 tablet by mouth every 8 hours as needed for Pain. Take with food. PHENYLEPHRINE 0.125 % NASAL DROPS 120 * 0 02/02/2018 Route: NASAL Sig: Use 1 Drop in the nose every 4 hours as needed. CODEINE 10 MG-GUAIFENESIN 100 MG/5 M* 120 * 0 02/02/2018 02/07/2018 Class: Print RX Route: ORAL Sig: Take 5-10 mL by mouth four times daily as needed for Cough for up to 5 days. May cause drowsiness.Medications Discontinued During This Encounter codeine-guaiFENesin (ROBITUSSIN AC) * 120 * 0 08/27/2017 02/02/2018 Class: Print RX Route: ORAL Sig: Take 5-10 mL by mouth four times daily as needed for Cough for up to 7 days. May cause drowsiness. Disc: Reason for discontinue is not on file. Status:Closed by CIARA BALDWIN CNP on 02/02/18 Normal [facility] Group A Strep by PCRon 02-02 GAS Specimen Source Throat Swab Normal [facility] Comment on above: Performed By: #### [facility] ####[facility] [address] [place], [place] [phone] Group A Strep PCR Negative Normal [facility] Comment on above: Result Comment: This test was developed and its performance characteristics determined by [facility]'s [facility] [place] ([facility]).It has not been cleared or approved by the FDA. [facility] is regulated under CLIA as qualified to perform high-complexity testing. This test is used for clinical purposes. It should not be regarded as investigational or for research. Performed By: #### [facility] ####[facility] [place], [place] [phone] PROGRESSon 02-02-2018 PROGRESS HNO ID: [id number] thor: Ab Baldwinervice: (none)Author Type: Nurse PractitionerType: Progress NotesFiled: 02/02/2018 7:00 PMNote Text:SubjectiveHPIPt presents with c/o one week hx sore throat, cough , nasal congestion,headaches.States sx began abruptly with fever, chills and myalgias.Tmax 103.Nose bleed today.Cough is frequent, moist, harsh, nonproductive.Cough is keeping pt awake at night.+chest tightness at times.Has been taking Mucinex severe and ibuprofen.+popping and pressure to bilateral ears.Review of SystemsConstitutional: Positive for chills, fever and malaise/fatigue.HENT: Positive for congestion and sore throat. Negative for ear pain andsinus pain.Respiratory: Positive for cough. Negative for hemoptysis, sputumproduction, shortness of breath and wheezing.Musculoskeletal: Positive for myalgias.Skin: Negative for rash.ObjectivePhysical ExamConstitutional: He is oriented to person, place, and time andwell-developed, well-nourished, and in no distress. No distress.HENT:Head: Normocephalic.Right Ear: Hearing, external ear and ear canal normal. Tympanic membraneis perforated. Tympanic membrane is not bulging.Left Ear: Hearing, tympanic membrane, external ear and ear canal normal.Tympanic membrane is not erythematous and not bulging.Nose: Nose normal. No rhinorrhea. Right sinus exhibits no maxillary sinustenderness and no frontal sinus tenderness. Left sinus exhibits nomaxillary sinus tenderness and no frontal sinus tenderness.Mouth/Throat: Uvula is midline, oropharynx is clear and moist and mucousmembranes are normal. No oropharyngeal exudate. Posterior oropharyngealerythema: clear drainage.Eyes: Conjunctivae are normal. Pupils are equal, round, and reactive tolight. Right eye exhibits no discharge. Left eye exhibits no discharge.Neck: Neck supple.Cardiovascular: Normal rate, regular rhythm and normal heart sounds. Examreveals no gallop and no friction rub.No murmur heard.Pulmonary/Chest: Effort normal and breath sounds normal. No accessorymuscle usage. No respiratory distress. He has no decreased breath sounds(CTA, good air movement throughout. pulse ox 97%). He has no wheezes. Hehas no rhonchi. He has no rales.Lymphadenopathy: He has no cervical adenopathy.Neurological: He is alert and oriented to person, place, and time.Skin: Skin is warm and dry. He is not diaphoretic.BP 104/64 Pulse 76 Temp 37.1 ?C (98.7 ?F) (Left Tympanic) Resp 16 Wt 68 kg (150 lb) SpO2 97%.Patient presents with:Sore Throat: x 1 weekFever: x 1 weekHeadache: x 1 weekCough: x 1 weekPain, Sinus: x 1 weekNo past medical history on file.No past surgical history on file.ALLERGIES AmoxicillinMEDICATIONScefdinir (OMNICEF) 300 mg capsule Take 1 capsule by mouth twice daily for10 days.ibuprofen (MOTRIN) 800 mg tablet Take 1 tablet by mouth every 8 hours asneeded for Pain. Take with food.PHENYLephrine 0.125% (AWA-SYNEPHRINE) 0.125 % nasal drops Use 1 Drop inthe nose every 4 hours as needed.codeine-guaiFENesin (ROBITUSSIN AC) 10-100 mg/5 mL syrup Take 5-10 mL bymouth four times daily as needed for Cough for up to 5 days. May causedrowsiness.ibuprofen (MOTRIN) 800 mg tablet Take 800 mg by mouth every 6 hours asneeded.Benzonatate 200 mg capsule Take 200 mg by mouth three times daily asneeded for Cough.predniSONE (DELTASONE) 20 mg tablet Take 1 tablet by mouth once daily.Take daily with food.No family history on file.Social HistorySubstance Use Topics- Smoking status: Former Smoker- Smokeless tobacco: Never Used- Alcohol use Not on fileASSESSMENT/PLAN:1. Influenza-like illness - ICD9: 799.89, ICD10: R69 (primary diagnosis)- IBUPROFEN 800 MG TABLET2. Sore throat - ICD9: 462, ICD10: J02.9- Rapid Strep negative in the office today and Throat culture pending- Discussed supportive care treatment with fluids, rest and analgesia.- The patient should follow up in 3-5 days if symptoms persist or worsen- Call back if drooling, increased temperature, symptoms of dehydrationand/or still sick in one week- RAPID STREP TEST B/O- GROUP A STREPTOCOCCUS BY PCR3. Cough - ICD9: 786.2, ICD10: R05- PHENYLEPHRINE 0.125 % NASAL DROPS- CODEINE 10 MG-GUAIFENESIN 100 MG/5 ML ORAL LIQUID4. Acute otitis media, right - ICD9: 382.9, ICD10: H66.91- CEFDINIR 300 MG CAPSULEThe patient is instructed to return or seek emergency treatment ifsymptoms become worse or with any acute change in condition.The patient verbalizes understanding and is in agreement with plan ofcare.Ciara Baldwin CNP [facility] CNOVon 08-27-2017 CNOV Office Visit ([facility]) GIOVANA AKHTAR ([id number]) 1970 [facility] Time Provider Psbcnvnkms82/29/17 10:00 AM OLGA BOWENS) WSTR During your visit today, we recorded the following information about you: Temperature Pulse Respiration Blood pressure 98.7 degrees 72/minute 16/minute 142/78 Weight 70.7 kgOlga Bowens CNP 08/27/2017 10:49 AM SignedHPWILMAN Ruth Hermilo is a 46 year old male who presents today for CC of rightear pressure, cough. This started over 7 days ago, symptoms initiallyimproved, then worsened. Has tried multiple otc medication without relief.Symptoms are made relieved by nothing. Symptoms are worsened by nothing. Riskfactors sick exposures at home.Review of SystemsConstitutional: Negative for chills, fever and weight loss.HENT: Positive for congestion, ear pain and sore throat. Negative for eardischarge and nosebleeds.Respiratory: Positive for cough. Negative for shortness of breath and wheezing.Musculoskeletal: Negative for neck pain.No past medical history on file.No past surgical history on file.ALLERGIES Review of patient's allergies indicates no known allergies.MEDICATIONSibuprofen (MOTRIN) 800 mg tablet Take 800 mg by mouth every 6 hours as needed.Benzonatate 200 mg capsule Take 200 mg by mouth three times daily as needed forCough.predniSONE (DELTASONE) 20 mg tablet Take 1 tablet by mouth once daily. Takedaily with food.No family history on file.Social HistorySubstance Use Topics- Smoking status: Former Smoker- Smokeless tobacco: Not on file- Alcohol use Not on fileBlood pressure 142/78, pulse 72, temperature 37.1 ?C (98.7 ?F), temperaturesource Tympanic, resp. rate 16, weight 70.7 kg (155 lb 12.8 oz), SpO2 99 %.Physical ExamConstitutional: He is well-developed, well-nourished, and in no distress. Nodistress.HENT:Head: Normocephalic and atraumatic.Right Ear: Hearing, tympanic membrane, external ear and ear canal normal.Left Ear: Hearing, tympanic membrane, external ear and ear canal normal.Nose: Rhinorrhea present. Right sinus exhibits maxillary sinus tenderness. Leftsinus exhibits maxillary sinus tenderness.Mouth/Throat: Uvula is midline, oropharynx is clear and moist and mucousmembranes are normal.Eyes: Conjunctivae, EOM and lids are normal. Pupils are equal, round, andreactive to light. Lids are everted and swept, no foreign bodies found. Righteye exhibits no discharge. Left eye exhibits no discharge. No scleral icterus.Neck: Trachea normal and normal range of motion. Neck supple.Cardiovascular: Normal rate, regular rhythm and normal heart sounds.Pulmonary/Chest: Effort normal and breath sounds normal.Dry cough during examLymphadenopathy: He has cervical adenopathy (small nonotender). Right cervical: Superficial cervical adenopathy present. Left cervical: Superficial cervical adenopathy present.Skin: No rash noted. He is not diaphoretic.ASSESSMENT/PLAN:1. Sinobronchitis - ICD9: 473.9, 490, ICD10: J32.9, J40 (primary diagnosis)-symptoms initially improved, now worsened after 5 days, now severe- Will begin treatment with Augmentin 875 mg PO BID for 10 days- The patient should also be given behind the counter Pseudoephedrine, Coughsyrup with codeine- Rx given, warm salt water gargles, throat lozenges and/orOTC throat spray as needed and nasal saline gtts and suction prn for the first5-7 days of treatment.- Supportive care with plenty of fluids, rest, and analgesia prn.- Follow up in 3-5 days if symptoms persist or worsen.- AMOXICILLIN 875 MG-POTASSIUM CLAVULANATE 125 MG TABLET- CODEINE 10 MG-GUAIFENESIN 100 MG/5 ML ORAL LIQUID2. Cough - ICD9: 786.2, ICD10: R05As above, follow up with primary care if symptoms persist- CODEINE 10 MG-GUAIFENESIN 100 MG/5 ML ORAL LIQUIDPrescription instructions reviewed with patient as applicable. Patient advisedif symptoms do not improve or if symptoms worsen sooner, to contact the officefor further evaluation by either myself or their primary care physician.Potential red flag symptoms discussed with the patient. Reviewed appropriateaction plan to take if red flag symptoms occur. Patient agreeable to treatmentplan.Fan Watkins CNP 08/27/2017 10:41 AM SignedASSESSMENT/PLAN:1. Sinobronchitis - ICD9: 473.9, 490, ICD10: J32.9, J40 (primary diagnosis)- Will begin treatment with Augmentin 875 mg PO BID for 10 days- The patient should also be given behind the counter Pseudoephedrine, Coughsyrup with codeine- Rx given, warm salt water gargles, throat lozenges and/orOTC throat spray as needed and nasal saline gtts and suction prn for the first5-7 days of treatment.- Supportive care with plenty of fluids, rest, and analgesia prn.- Follow up in 3-5 days if symptoms persist or worsen.- AMOXICILLIN 875 MG-POTASSIUM CLAVULANATE 125 MG TABLET- CODEINE 10 MG-GUAIFENESIN 100 MG/5 ML ORAL LIQUID2. Cough - ICD9: 786.2, ICD10: R05As above, follow up with primary care if symptoms persist- CODEINE 10 MG-GUAIFENESIN 100 MG/5 ML ORAL LIQUIDReferring Provider: SELF [200]Allergies As of Date: 08/27/2017(No Known Allergies)Date Reviewed: 08/27/2017Reviewed by: Olga Bowens - Fully AssessedReason for Visit: sinus pressure and congestion, cough [Other] Cmt: x 1 week-fever last pm 100.7 and has yellow drainage with some bloodPrimary Visit Diagnosis:Sinobronchitis [J32.9, J40] Other Visit Diagnosis:Cough [R05]Order(s):amoxicillin-clavula anton acid (AUGMENTIN) 875-125 mg per tabletTake 1 tablet by mouth twice daily for 10 days.Disp: 20 tabletRfl: 0 codeine-guaiFENesin (ROBITUSSIN AC) 10-100 mg/5 mL syrupTake 5-10 mL by mouth four times daily as needed for Cough for up to 7 days. May cause drowsiness.Disp: 120 mLRfl: 0Prescriptions as of 08/27/2017 Sig: IBUPROFEN 800 MG TABLET Take 800 mg by mouth every 6 * AMOXICILLIN 875 MG-POTASSIUM * Take 1 tablet by mouth twice * CODEINE 10 MG-GUAIFENESIN 100* Take 5-10 mL by mouth four ti* BENZONATATE 200 MG CAPSULE Take 200 mg by mouth three ti* PREDNISONE 20 MG TABLET Take 1 tablet by mouth once d*Medication notes this encounter BENZONATATE 200 MG CAPSULE >> Dalia Ramírez LPN 08/27/2017 10:19 AM >> DALIA RAMÍREZ LPN FriAug 27, 2017 10:19 AM Finished PREDNISONE 20 MG TABLET >> Dalia Ramírez LPN 08/27/2017 10:20 AM >> DALIA RAMÍREZ LPN FriAug 27, 2017 10:20 AM FinishedProblem List As Of Date: 08/27/2017(None) Other instructions from your clinician: ASSESSMENT/PLAN: 1. Sinobronchitis - ICD9: 473.9, 490, ICD10: J32.9, J40 (primary diagnosis) - Will begin treatment with Augmentin 875 mg PO BID for 10 days - The patient should also be given behind the counter Pseudoephedrine, Cough syrup with codeine- Rx given, warm salt water gargles, throat lozenges and/or OTC throat spray as needed and nasal saline gtts and suction prn for the first 5-7 days of treatment. - Supportive care with plenty of fluids, rest, and analgesia prn. - Follow up in 3-5 days if symptoms persist or worsen. - AMOXICILLIN 875 MG-POTASSIUM CLAVULANATE 125 MG TABLET - CODEINE 10 MG-GUAIFENESIN 100 MG/5 ML ORAL LIQUID 2. Cough - ICD9: 786.2, ICD10: R05 As above, follow up with primary care if symptoms persist - CODEINE 10 MG-GUAIFENESIN 100 MG/5 ML ORAL LIQUIDPrescriptions ordered this encounter Disp Refills Start End AMOXICILLIN 875 MG-POTASSIUM CLAVULA* 20 t* 0 08/27/2017 09/06/2017 Route: ORAL Sig: Take 1 tablet by mouth twice daily for 10 days. CODEINE 10 MG-GUAIFENESIN 100 MG/5 M* 120 * 0 08/27/2017 09/03/2017 Class: Print RX Route: ORAL Sig: Take 5-10 mL by mouth four times daily as needed for Cough for up to 7 days. May cause drowsiness.Medications Discontinued During This Encounter codeine-guaiFENesin (ROBITUSSIN AC) * 120 * 0 05/23/2016 08/27/2017 Class: Print RX Route: ORAL Sig: Take 5-10 mL by mouth four times daily as needed for Cough for up to 7 days. May cause drowsiness. Disc: Reason for discontinue is not on file. Status:Closed by OLGA BOWENS CNP on 08/27/17 [facility] PROGRESSon 08-27-2017 PROGRESS HNO ID: [id number] thor: Olga (Ellen) Tess: (none)Author Type: Nurse PractitionerType: Progress NotesFiled: 08/27/2017 10:49 AMNote Text:HPIHPI Manuelito Akhtar is a 46 year old male who presents today for CC ofright ear pressure, cough. This started over 7 days ago, symptomsinitially improved, then worsened. Has tried multiple otc medicationwithout relief. Symptoms are made relieved by nothing. Symptoms areworsened by nothing. Risk factors sick exposures at home.Review of SystemsConstitutional: Negative for chills, fever and weight loss.HENT: Positive for congestion, ear pain and sore throat. Negative for eardischarge and nosebleeds.Respiratory: Positive for cough. Negative for shortness of breath andwheezing.Musculoskeletal: Negative for neck pain.No past medical history on file.No past surgical history on file.ALLERGIES Review of patient's allergies indicates no known allergies.MEDICATIONSibuprofen (MOTRIN) 800 mg tablet Take 800 mg by mouth every 6 hours asneeded.Benzonatate 200 mg capsule Take 200 mg by mouth three times daily asneeded for Cough.predniSONE (DELTASONE) 20 mg tablet Take 1 tablet by mouth once daily.Take daily with food.No family history on file.Social HistorySubstance Use Topics- Smoking status: Former Smoker- Smokeless tobacco: Not on file- Alcohol use Not on fileBlood pressure 142/78, pulse 72, temperature 37.1 ?C (98.7 ?F),temperature source Tympanic, resp. rate 16, weight 70.7 kg (155 lb 12.8oz), SpO2 99 %.Physical ExamConstitutional: He is well-developed, well-nourished, and in no distress.No distress.HENT:Head: Normocephalic and atraumatic.Right Ear: Hearing, tympanic membrane, external ear and ear canal normal.Left Ear: Hearing, tympanic membrane, external ear and ear canal normal.Nose: Rhinorrhea present. Right sinus exhibits maxillary sinus tenderness.Left sinus exhibits maxillary sinus tenderness.Mouth/Throat: Uvula is midline, oropharynx is clear and moist and mucousmembranes are normal.Eyes: Conjunctivae, EOM and lids are normal. Pupils are equal, round, andreactive to light. Lids are everted and swept, no foreign bodies found.Right eye exhibits no discharge. Left eye exhibits no discharge. Noscleral icterus.Neck: Trachea normal and normal range of motion. Neck supple.Cardiovascular: Normal rate, regular rhythm and normal heart sounds.Pulmonary/Chest: Effort normal and breath sounds normal.Dry cough during examLymphadenopathy: He has cervical adenopathy (small nonotender). Right cervical: Superficial cervical adenopathy present. Left cervical: Superficial cervical adenopathy present.Skin: No rash noted. He is not diaphoretic.ASSESSMENT/PLAN:1. Sinobronchitis - ICD9: 473.9, 490, ICD10: J32.9, J40 (primarydiagnosis)-symptoms initially improved, now worsened after 5 days, now severe- Will begin treatment with Augmentin 875 mg PO BID for 10 days- The patient should also be given behind the counter Pseudoephedrine,Cough syrup with codeine- Rx given, warm salt water gargles, throatlozenges and/or OTC throat spray as needed and nasal saline gtts andsuction prn for the first 5-7 days of treatment.- Supportive care with plenty of fluids, rest, and analgesia prn.- Follow up in 3-5 days if symptoms persist or worsen.- AMOXICILLIN 875 MG-POTASSIUM CLAVULANATE 125 MG TABLET- CODEINE 10 MG-GUAIFENESIN 100 MG/5 ML ORAL LIQUID2. Cough - ICD9: 786.2, ICD10: R05As above, follow up with primary care if symptoms persist- CODEINE 10 MG-GUAIFENESIN 100 MG/5 ML ORAL LIQUIDPrescription instructions reviewed with patient as applicable. Patientadvised if symptoms do not improve or if symptoms worsen sooner, tocontact the office for further evaluation by either myself or theirprformerly [facility] care physician. Potential red flag symptoms discussed with thepatient. Reviewed appropriate action plan to take if red flag symptomsoccur. Patient agreeable to treatment plan.Olga Bowens CNP Normal [facility] Vital Signs Date Time Vital Sign Value Performing Clinician Priscilla hunter 02-01-2022 09:33-0400 Body temperature 98.6 [degF] Dr. Derrick Diego Work Phone: [facility] Work Phone: 02-01-2022 09:33-0400 Diastolic blood pressure 68 mm[Hg] Dr. Derrick Diego Work Phone: [facility] Work Phone: 02-01-2022 09:33-0400 Heart rate 60 /min Dr. Derrick Diego Work Phone: [facility] Work Phone: 02-01-2022 09:33-0400 Respiratory rate 16 /min Dr. Derrick Diego Work Phone: [facility] Work Phone: 02-01-2022 09:33-0400 SaO2% (BldA) [Mass fraction] 100 % Dr. Derrick Diego Work Phone: [facility] Work Phone: 02-01-2022 09:33-0400 Systolic blood pressure 102 mm[Hg] Dr. Derrick Diego Work Phone: [facility] Work Phone: 02-01-2022 07:47-0400 Body height 169.[address] Derrick Diego Work Phone: [facility] Work Phone: 02-01-2022 07:47-0400 Body mass index (BMI) [Ratio] 23.3 kg/m2 Dr. Derrick Diego Work Phone: [facility] Work Phone: 02-01-2022 07:47-0400 Body weight [address] Derrick Diego Work Phone: [facility] Work Phone: Encounters Encounter Date Encounter Type Care Provider Facility Start: 08-05-2023 End: 08-05-2023 ambulatory [facility] Work Phone: Start: 08-05-2023 End: 08-05-2023 Patient encounter procedure [facility] [place] Work Phone: Start: 10-01-2022 End: 10-01-[facility] Start: 10-01-2022 End: 10-01-2022 Patient encounter procedure [facility],Blanca alejandro Start: 02-01-2022 ambulatory [facility] Facility: [facility] Start: 02-01-2022 End: 02-01-2022 ambulatory [facility] Facility:[facility] Start: 02-01-2022 Non-patient / Non-visit Dr. Danuta Diego Work Phone: [facility] Start: 02-01-2022 End: 02-01-2022 Admission to same day surgery center Dr. Derrick Diego Work Phone: [facility] Start: 02-02-2018 End: 02-03-2018 Ambulatory [facility] Start: 08-27-2017 End: 08-27-2017 Ambulatory [facility] Procedures Date Procedure Procedure Detail Performing Clinician Start: 08-05-2023 Radiography of thora cic spine Start: 02-01-[address] Waldo Diego Work Phone: Plan of Treatment Date Care Activity Detail Author Patient referral [facility] Work Phone: Payers Date Payer Category Payer Private Health Insurance [id number] 2021 Self-pay [id number] Unknown [id number] Unknown [id number] Unknown [id number] Social History Date Type Detail Facility Start: 02-01-2022 End: 02-01-2022 Tobacco smoking status NHIS Unknown if ever smoked [facility] Start: 1970 Sex Assigned At Male W [facility] Mental Status Date Assessment Result Facility 02-01-2022 Cognitive function Voice/Name [facility] Work Phone: Clinical Note 02-01-2022 Note Date & Type Note Facility 02-01-2022 Note [facility] Medical Records Department [address] [place] [address] History Physical Exam 02/01/22 0845 MR#: [id number] Acct: [id number] Name: MANUELITO AKHTAR Rep #: [id number] : 1970 51 From: Derrick Diego MD PCP: Dr. Zach Shaw, DO Status:[facility] Location: [place] [address] HPI - General HPI Narrative MANUELITO AKHTAR, is a 51 M who presents for screening colonoscopy. Patient has never had a screening colonoscopy in the past. He denies any abdominal pain or blood in the stool. He has a family history only in his grandfather of colon cancer [facility] Medical History Alcohol use Anxiety Gastric reflux High cholesterol History of stress test Non-smoker Home Medications alprazolam 0.5 mg PO PRN PRN 01/29/22 [History Last Taken Unknown] atorvastatin 30 mg PO DAILY 01/29/22 [History Last Taken Unknown] coenzyme Q10 [CoQ-10] 100 mg PO DAILY 01/29/22 [History Last Taken 01/27/22] melatonin 10 mg PO DAILY 01/29/22 [History Last Taken Unknown] multivitamin 1 tab PO DAILY 01/29/22 [History Last Taken Unknown] omega-3 fatty acids [Fish Oil] 1,000 mg PO DAILY 01/29/22 [History Last Taken 01/27/22] turmeric 400 mg PO DAILY 01/29/22 [History Last Taken 01/27/22] Allergy/AdvReac Type Severity Reaction Status Date / Time No Known Allergies Allergy Verified 02/01/22 07:46 Surgical History (Updated 01/29/22 @ 14:10 by Laurie Pompa) Hx of LASIK Social History Smoking Status: Never smoker Past Medical/Surgical History Planned Operation Planned Operative Procedure/s: COLONOSCOPY Previous Hospitalizations/Surgeries HX Hospitalizations: No Any Problems With Anesthesia: No You/Your Family Experience Fever (Hyperthermia) With Anes: No Cholinesterase deficiency: No Cardiovascular Hx Hypertension: No Respiratory Hx Sleep Apnea: No Hx Respiratory Tract Infection/Cold (presently): No Do You Snore Loudly (louder than talking or can be heard): Yes Do You Often Feel Tired/ Fatigued/ Sleepy Dring Daytime?: No Has Anyone Observed You Stop Breathing During Sleep?: No Result (for STOP score): Negative Smoking Status: Never smoker Neurological Does patient have nerve stimulator: No Miscellaneous Recent Exposure to Contagious Disease: No Allergies No Known Allergies Allergy (Verified 02/01/22 07:46) Discharge Is Pt Admitted From a Group Home, or a Alf: No After D/C, Where Do you Plan to Go: Return Home Vital Signs Vital Signs Vital Signs: 02/01/22 07:47 Temperature 97.5 F L Temperature Source Temporal Pulse Rate 67 Respiratory Rate 18 Respiratory Pattern Normal Blood Pressure 122/79 H Blood Pressure Mean 93 Blood Pressure Source Monitor Blood Pressure Position Semi-Fowlers Blood Pressure Location Left Arm Pulse Ox 98 Oxygen Delivery Method Room Air Weight Weight: 147 lb 11.355 oz Body Mass Index (BMI) 23.3 Physical Exam Const alert and oriented x3 Resp normal respiratory effort and normal air movement Cardio regular rate and regular rhythm GI soft to palpation, non-tender and non-distended Assessment Plan Assessment/Plan (1) Encounter for screening for malignant neoplasm of colon: PLAN: I explained endoscopy in detail to the patient. I explained the risks including but not limited to stroke or heart attack with anesthesia, perforation of the GI tract, bleeding, infection. I explained that any of these could necessitate further emergency surgery. The patient understands and all questions were answered sufficiently. The patient wishes to proceed with procedure. Derrick Diego MD Pager: [facility] [address] [place] [address], [address] [place] [address] Office: Surgery Risks - Colonoscopy Risks Include but are not Limited To: Risks include but are not limited to: Bleeding, perforation requiring further surgery, inability to complete colonoscopy requiring barium enema. 02/01/22 0846 Cosigner Signature (if applicable): CC: Dr. Derrick Diego MD; Dr. Zach Shaw DO Signed [facility] Evaluation note Note Date & Type Note Facility Evaluation note Diagnosis Onset Date Encounter for screening for malignant neoplasm of colon acute [facility] Work Phone: Evaluation note Note Date & Type Note Facility Evaluation note No assessment information availa ble [facility] Work Phone: Summary Purpose Family History No Family History Records FoundNo Family History Records Found Advance Directives Advance Directive Response Recorded Date/ Time Living Will Yes January 29, 2022 2: 10pm Power of Payment Collector Yes January 29, 2022 2:10pm Advance Directive Response Recorded Date/ Time Living Will Yes January 29, 2022 1: 10pm Power of Payment Collector Yes January 29, 2022 1:10pm Additional Source Comments (unrecognized sect ion and content) No Status Records FoundNo Status Records Found INFORMATION SOURCE (unrecogn ized section and content) DATE CREATED AUTHOR 03/19/2018 [facility] DATE CREATED AUTHOR AUTHOR'S ORGANIZ ATION 10/16/2022 [facility] Goals (unrecognized section and content) Goals may be documented in a n alternate sectionGoals may be documented in an alternate sectionGoals may be documented in an alternate section Care Teams (unrecognized sec tion and content) Team Status: Active Member Role Status Dates Dr. Jose Sampson MD Family Provider Active Dr. Zach Shaw DO Primary Care Provider Active Team Status: Inactive Member Role Status Dates Dr. Zach Shaw DO Primary Care Provider, Attendin g Provider Active Team Status: Inactive Member Role Status Dates Dr. Zach Shaw DO Primary Care Prov ider, Attending Provider, Referring Provider Active FOR RECORDS PERTAINING TO PATIENTS WHO ARE OR HAVE BEEN ENROLLED IN A CHEMICAL DEPENDENCY/SUBSTANCEABUSE PROGRAM, SOME INFORMATION MAY BE OMITTED. This clinical summary was aggregated from multiple sources. Caution should be exercised in using it in the provision of clinical care. This summary normalizes information from multiple sources, and as a consequence, information in this document may materially change the coding, format and clinical context of patient data. In addition, data may be omitted in some cases. CLINICAL DECISIONS SHOULD BE BASED ON THE PRIMARY CLINICAL RECORDS. [employer] provides no warranty or guarantee of the accuracy or completeness of information in this document.
[2025-04-08] MEDS: hydrOXYzine PAM 25 MG Capsule 50 MG PO ×2 (15:35→22:33)
--- NOTE | 2025-04-08 16:07 | HP.PCM.HOS_ITS ---
HPI - General General Date of Admission: 04/08/25 Date of Service: 04/08/25 Chief Complaint: Alcohol withdrawal HPI Narrative BARRY MAHAJAN, is a 54 M who presents seeking treatment for alcohol withdrawal. Patient's last drink was yesterday. Since then he has been having shakes, diaphoresis. Presented emergency room requesting treatment. He has been through alcohol withdrawal program before but not here.. [facility] Medical History Anxiety Alcohol use High cholesterol Gastric reflux Non-smoker History of stress test Home Medications ?Medication ?Instructions ?Recorded ?Last Taken ?Type alprazolam 0.5 mg tablet 0.5 mg PO PRN PRN Anxiety Unknown History atorvastatin 20 mg tablet 30 mg PO DAILY 01/29/22 Unkn own History coenzyme Q10 100 mg capsule 100 mg PO DAILY 01/29/22 0 01/27/22 History (CoQ-10) melatonin 10 mg tablet,extended 10 mg PO QHS 01/29/22 Unknown History release multivitamin 1 tab PO DAILY 01/29/22 Unkn own History omega-3 fatty acids 1,000 mg PO DAILY 01/29/22 0 01/27/22 History turmeric 400 mg capsule 400 mg PO DAILY 01/29/2210/20 History paroxetine HCl 10 mg tablet 5 mg PO DAILY anxiety 03/29 10/23 Unknown History Allergy/AdvReac Type Severity Reaction Status Date / Time No Known Allergies Allergy Verified 04/08/25 09:04 Family History (Updated 04/08/25 @ 16:[address] Gaurang Leslie DO) Other Alcoholism Surgical History Hx of [facility] Social History (Updated 04/08/25 @ 16:[address] Gaurang Leslie DO) Smoking Status: Never smoker alcohol intake: current Alcohol type: wine details: Bottle of wine a day ROS ROS Narrative All review of systems were negative except as mentioned above in the history of present illness and the other review of systems. Vital Signs Vital Signs Vital Signs: 04/08/25 09:03 04/08/25 09:03 04/08/25 10:03 Temperature 35.6 C L 37.0 C Temperature Source Temporal Oral Pulse Rate 111 H 78 85 Respiratory Rate 20 H 16 14 Blood Pressure 147/98 H 134/78 H 136/89 H Blood Pressure Mean 114 96 104 Blood Pressure Source Monitor Blood Pressure Position Semi-Fowlers Blood Pressure Location Right Arm Pulse Ox 94 98 97 Oxygen Delivery Method Room Air Room Air 04/08/25 11:11 04/08/25 11:15 04/08/25 11:26 Temperature Temperature Source Pulse Rate 73 71 Respiratory Rate 16 11 L Blood Pressure 116/79 106/80 Blood Pressure Mean 91 89 Blood Pressure Source Blood Pressure Position Blood Pressure Location Pulse Ox 94 93 Oxygen Delivery Method Room Air 04/08/25 11:30 04/08/25 12:04 04/08/25 13:00 Temperature Temperature Source Pulse Rate 93 94 99 Respiratory Rate 17 16 16 Blood Pressure 114/73 113/80 112/78 Blood Pressure Mean 85 91 89 Blood Pressure Source Blood Pressure Position Blood Pressure Location Pulse Ox 96 94 98 Oxygen Delivery Method Room Air Room Air 04/08/25 14:00 04/08/25 14:28 04/08/25 15:06 Temperature 36.9 C 36.7 C Temperature Source Oral Pulse Rate 115 H 108 H 80 Respiratory Rate 20 H 16 16 Blood Pressure 133/81 H 118/76 110/78 Blood Pressure Mean 98 90 88 Blood Pressure Source Monitor Blood Pressure Position Semi-Fowlers Blood Pressure Location Left Arm Pulse Ox 95 98 95 Oxygen Delivery Method Room Air Room Air Weight Weight: 66.4 kg Body Mass Index (BMI) 23.6 Physical Exam Narrative - Physical Exam General: Alert, Oriented x3, Cooperative HEENT: Atraumatic, PERRLA, EOMI, Normocephalic Oral: Moist Mucosa, No Gingival or Mucosal Lesions/ Ulcerations Neck: Supple, No JVD, Negative Carotid Bruits Lungs: Clear to auscultation, Normal air movement Cardiovascular: Regular rate, Normal S1, Normal S2, No murmurs Abdomen: Bowel Sounds Present, Soft, Non Tender, Non-Distended, No Hepato- splenomegaly Extremities: No clubbing, No cyanosis, No edema, Capillary Refill Less than 3 Seconds Skin: No rashes, No breakdown Musculoskeletal: No Tenderness to Palpation of Joints or Extremities Psych/Mental Status: Normal Affect, Appropriate Results Lab / Micro Data 04/08/25 10:01 04/08/25 10:01 Labs: Laboratory Results - last 24 hr 04/08/25 10:01: WBC 9.1, RBC 5.02, Hgb 16.3, Hct 47.9, MCV 95.4 H, MCH 32.5 H, MCHC 34.0, RDW Std Deviation 43.0, RDW Coeff of Darshan 12.2, Plt Count 214, MPV 8.9, Immature Gran % (Auto) 0.400, Neut % (Auto) 71.4 H, Lymph % (Auto) 24.2, [place] % (Auto) 3.1, Eos % (Auto) 0.0, Baso % (Auto) 0.9, Absolute Neuts (auto) 6.5, Absolute Lymphs (auto) 2.20, Nucleated RBC % 0, Sodium 142, Potassium 3.9, Chloride 100, Carbon Dioxide 24.7, Anion Gap 17 H, BUN 17, Creatinine 0.88, Estim Creat Clear Calc 87.60, Est GFR (MDRD) Non-Af 103, BUN/Creatinine Ratio 18.9, Glucose 99, Calcium 9.0, Magnesium 2.6 H, Total Bilirubin 0.43, AST 39 H, ALT 38, Alkaline Phosphatase 58, Total Protein 7.5, Albumin 4.7, Globulin 2.7, Albumin/Globulin Ratio 1.7, Ethyl Alcohol 313.0 H* 04/08/25 10:15: Urine Opiates Screen NEGATIVE, U Buprenorphine Qual NEGATIVE, Ur Oxycodone Screen NEGATIVE, Urine Methadone Screen NEGATIVE, Urine Fentanyl Screen NEGATIVE, Ur Barbiturates Screen NEGATIVE, Ur Phencyclidine Scrn NEGATIVE, Ur Amphetamines Screen NEGATIVE, U Benzodiazepines Scrn NEGATIVE, Urine Cocaine Screen NEGATIVE, U Cannabinoids Screen NEGATIVE Assessment & Plan Assessment/Plan (1) Alcohol withdrawal: PLAN: Phenobarbital taper, thiamine folate, as needed medications to help this medically and supported with his withdrawal. Addiction medicine to see to help facilitate outpatient program this patient has nothing currently set up. PLAN: Plan Anxiety: Continue with paroxetine and as needed alprazolam Hyperlipidemia: Continue with statin VTE prophylaxis: Low risk. Charges/Coding Visit Charges Inpatient E&M: 53673 Init Hosp L2
[2025-04-08] MEDS: MELATONIN 10 MG TABLET PO (22:28)
[2025-04-08] MEDS: 0.9% Saline Lock 10 ML Syringe IV (22:36)
[2025-04-09 01:46] VITALS: BP 101/57; PULSE 58; RESP 16; TEMP 36.7; O2SAT 96
[2025-04-09 04:21] VITALS: BP 99/56; PULSE 56; RESP 16; TEMP 36.6; O2SAT 95
--- NOTE | 2025-04-09 07:17 | PCM.PN.HOSP ---
Reason for Visit Reason for Visit: Diagnoses Alcohol use, unspecified with withdrawal, unspecified (04/08/25) Subjective Subjective Still feeling unwell with diaphoresis, but overall better. Objective Data Objective Data Vital Signs: Vital Signs Temp Pulse Resp BP Pulse Ox O2 Del Method 36.6 C 56 L 16 99/56 L 95 Room Air 04/09/25 04:21 04/09/25 04:21 04/09/25 04:21 04/09/25 04:21 04/09/25 04:21 04/09/25 04:21 Oxygen Delivery Method Room Air Weight: 66.4 kg Body Mass Index (BMI) 23.6 Intake & Output: Intake and Output for Last 24 Hours 04/07/25 04/08/25 04/09/25 23:59 23:59 23:59 Intake Total 999 / 1999 999 / 999 Balance 999 / 1999 1000 / 999 Lab / Micro Data 04/08/25 10:01 04/08/25 10:01 Labs: Laboratory Results - last 24 hr 04/08/25 10:01: WBC 9.1, RBC 5.02, Hgb 16.3, Hct 47.9, MCV 95.4 H, MCH 32.5 H, MCHC 34.0, RDW Std Deviation 43.0, RDW Coeff of Darshan 12.2, Plt Count 214, MPV 8.9, Immature Gran % (Auto) 0.400, Neut % (Auto) 71.4 H, Lymph % (Auto) 24.2, [place] % (Auto) 3.1, Eos % (Auto) 0.0, Baso % (Auto) 0.9, Absolute Neuts (auto) 6.5, Absolute Lymphs (auto) 2.20, Nucleated RBC % 0, Sodium 142, Potassium 3.9, Chloride 100, Carbon Dioxide 24.7, Anion Gap 17 H, BUN 17, Creatinine 0.88, Estim Creat Clear Calc 87.60, Est GFR (MDRD) Non-Af 103, BUN/Creatinine Ratio 18.9, Glucose 99, Calcium 9.0, Magnesium 2.6 H, Total Bilirubin 0.43, AST 39 H, ALT 38, Alkaline Phosphatase 58, Total Protein 7.5, Albumin 4.7, Globulin 2.7, Albumin/Globulin Ratio 1.7, Ethyl Alcohol 313.0 H* 07/11/25 10:15: Urine Opiates Screen NEGATIVE, U Buprenorphine Qual NEGATIVE, Ur Oxycodone Screen NEGATIVE, Urine Methadone Screen NEGATIVE, Urine Fentanyl Screen NEGATIVE, Ur Barbiturates Screen NEGATIVE, Ur Phencyclidine Scrn NEGATIVE, Ur Amphetamines Screen NEGATIVE, U Benzodiazepines Scrn NEGATIVE, Urine Cocaine Screen NEGATIVE, U Cannabinoids Screen NEGATIVE Physical Exam Const alert and no apparent distress HEENT head/scalp atraumatic Resp normal respiratory effort, no retractions, no use of accessory muscles and clear to auscultation bilaterally Cardio regular rate, regular rhythm, S1 normal heart sound and S2 normal heart sound GI normal to inspection, nondistended, normoactive bowel sounds and soft to palpation Neuro Sensorium / Orientation: awake and alert Assessment & Plan Assessment/Plan (1) Alcohol withdrawal: PLAN: Phenobarbital taper, thiamine folate, as needed medications to help this medically and supported with his withdrawal. Addiction medicine to see to help facilitate outpatient program this patient has nothing currently set up. PLAN: Plan Anxiety: Continue with paroxetine and as needed alprazolam Hyperlipidemia: Continue with statin VTE prophylaxis: Low risk. Charges/Coding Visit Charges Inpatient E&M: 41494 Subs Hosp L1
[2025-04-09] MEDS: Thiamine Hydrochloride 100 MG Tablet PO (08:42)
[2025-04-09 08:46] VITALS: BP 107/73; PULSE 69; RESP 16; TEMP 36.6; O2SAT 96
--- NOTE | 2025-04-09 14:50 | ADDICTION ---
Addendum entered by Kari Aguilar 04/09/25 15:12: Patient meets criteria for Vivitrol and would like his first dose upon discharge. He will follow up with [facility] for his next shot. Original Note: This web content writer met with PT to conduct ASAM, MSE, DUDIT assessments and to plan for d/c. PT A+Ox4 and participated actively. All assessments completed. PT plans to f/u with [facility] for out patient treatment services. Pt reports he does not require transportation services.
[2025-04-09 16:21] VITALS: BP 112/76; PULSE 68; RESP 16; TEMP 36.6; O2SAT 98
[2025-04-09 20:46] VITALS: BP 117/79; PULSE 72; RESP 16; TEMP 36.6; O2SAT 95
[2025-04-09] MEDS: MELATONIN 10 MG TABLET PO (20:52)
[2025-04-09 23:11] VITALS: BP 103/67; PULSE 60; RESP 16; TEMP 36.8; O2SAT 96
[2025-04-10 04:41] VITALS: BP 91/61; PULSE 60; RESP 16; TEMP 36.6; O2SAT 95
--- NOTE | 2025-04-10 07:22 | PCM.PN.HOSP ---
Reason for Visit Reason for Visit: Diagnoses Alcohol use, unspecified with withdrawal, unspecified (04/08/25) Subjective Subjective Feeling well. No new events. Objective Data Objective Data Vital Signs: Vital Signs Temp Pulse Resp BP Pulse Ox O2 Del Method 36.6 C 60 16 91/61 95 Room Air 04/10/25 04:41 04/10/25 04:41 04/10/25 04:41 04/10/25 04:41 04/10/25 04:41 04/10/25 04:41 Oxygen Delivery Method Room Air Weight: 66.4 kg Body Mass Index (BMI) 23.6 Intake & Output: Intake and Output for Last 24 Hours 04/08/25 04/09/25 04/10/25 23:59 23:59 23:59 Intake Total 1000 / 1999 1000 / 1000 Balance 1000 / 1999 1000 / 1000 Lab / Micro Data 04/08/25 10:01 04/08/25 10:01 Physical Exam Const alert and no apparent distress Constitutional Narrative: Standing up at side of bed eating breakfast with his bedside table raised. Cardio regular rate and regular rhythm Assessment & Plan Assessment/Plan (1) Alcohol withdrawal: PLAN: Phenobarbital taper, thiamine folate, as needed medications to help this medically and supported with his withdrawal. Addiction medicine saw the patient and plan is for the patient to follow-up with 180 outpatient treatment services. PLAN: Plan Anxiety: Continue with paroxetine and as needed alprazolam Hyperlipidemia: Continue with statin VTE prophylaxis: Low risk.
[2025-04-10 08:41] VITALS: BP 105/76; PULSE 76; RESP 18; TEMP 36.6; O2SAT 98
[2025-04-10] MEDS: Thiamine Hydrochloride 100 MG Tablet PO (08:44)
--- NOTE | 2025-04-10 10:25 | PCM.DC.SUM ---
Providers Date of Admission: 04/08/25 Primary Care Physician: Dr. Zach Shaw DO Reason For Visit: ALCOHOL WD Diagnosis Discharge Diagnosis (1) Alcohol withdrawal: Status: Acute Code(s): F10.939 - Alcohol use, unspecified with withdrawal, unspecified Plan: Phenobarbital taper, thiamine folate, as needed medications to help this medically and supported with his withdrawal. Addiction medicine saw the patient and plan is for the patient to follow-up with 180 outpatient treatment services. Plan Anxiety: Continue with paroxetine and as needed alprazolam Hyperlipidemia: Continue with statin VTE prophylaxis: Low risk. Medications at Discharge Home Medications alprazolam 0.5 mg tablet 0.5 mg PO PRN PRN Anxiety 01/29/22 atorvastatin 20 mg tablet 30 mg PO DAILY 01/29/22 coenzyme Q10 100 mg capsule (CoQ-10) 100 mg PO DAILY 01/29/22 melatonin 10 mg tablet,extended release 10 mg PO QHS 01/29/22 multivitamin 1 tab PO DAILY 01/29/22 omega-3 fatty acids 1,000 mg PO DAILY 01/29/22 turmeric 400 mg capsule 400 mg PO DAILY 01/29/22 paroxetine HCl 10 mg tablet 5 mg PO DAILY anxiety 04/08/25 Hospital Course Operations None Procedures None Summary of Care Provided Hospital Course: Patient presents with seen here for alcohol drawl. Patient was having tremors when he initially arrived. Patient was started on phenobarbital. Patient's course was uncomplicated and today is feeling much better. Patient did meet up with addiction medicine and the patient has a follow-up with 180 intensive outpatient. Patient be discharged home today. Weight / BMI Weight Weight: 66.4 kg Body Mass Index (BMI) 23.6 ABG / Lab / Microbiology Data 04/08/25 10:01 04/08/25 10:01 D/C Instructions DC O2, CPAP, BIPAP Needs Home O2 Discharge instructions: No Meaningful Use Info Meaningful Use Meaningful Use Diagnoses (Choose all that apply): None applicable Discharge Plan Admission Admit Date/Time: 04/08/25 13:55 Primary Reason for Your Visit: Alcohol drawl Attending Provider: Gaurang Leslie Primary Care Provider: Zach Shaw Discharge Orders/Prescriptions Prescriptions: Continued multivitamin Tablet 1 tab PO DAILY atorvastatin 20 mg tablet 30 mg PO DAILY alprazolam 0.5 mg tablet 0.5 mg PO PRN PRN (Reason: Anxiety) coenzyme Q10 [CoQ-10] 100 mg Capsule 100 mg PO DAILY omega-3 fatty acids Capsule 1,000 mg PO DAILY melatonin 10 mg Tablet Extended Release 10 mg PO QHS turmeric 400 mg Capsule 400 mg PO DAILY paroxetine HCl 10 mg tablet 5 mg PO DAILY Referrals / Follow Up: Zach Shaw DO [Primary Care Provider] - Within 2 Weeks Disposition Disposition (needs filled in before D/C Order can be placed): Home, Self Care Charges/Coding Visit Charges Inpatient E&M: 14958 Disch Hosp
== END 2025-04-10 11:35 | disposition home or self-care (01) | DRG 897 ==
LOC: ED 09:36 → MS3 14:09
PROVIDERS: Emergency Provider Surgery; PCP Family Medicine
DX: F10.939 Alcohol use, unspecified with withdrawal, unspecified (principal); E78.5 Hyperlipidemia, unspecified; F41.9 Anxiety disorder, unspecified; Y90.8 Blood alcohol level of 240 mg/100 ml or more
CPT/HCPCS: 80053; 80307; 82077; 83735; 85025; 99283; A4216; J2405

== ENCOUNTER 2025-05-12 08:50 | Inpatient (IN) | payer OTHER, SELFPAY ==
[2025-05-12] VITALS (11 sets, daily range): BP systolic 106–143; BP diastolic 56–103; PULSE 86–138; RESP 16–18; TEMP 36.6–36.9; O2SAT 92–99; BMI 23.8; BMI 22.5
--- NOTE | 2025-05-12 09:23 | EX.ED.DYSGE1 ---
HPI History of Present Illness Chief Complaint: Suicidal Narrative Narrative: 54-year-old male history of depression presents with complaints of suicidal ideation and alcohol withdrawal. Patient states that he normally drinks 3 or more glasses of wine daily. Around 10 AM and had a bottle of wine. States that it has been causing a lot of problems with his marriage and he has been having more depression and would like to quit drinking. States that he has been also having a lot of anxiety last took a Xanax this morning which had helped. Denying any history of alcohol withdrawal or delirium tremens or seizures. States that last time he was sober last to the year but relapsed several months ago. Has been having more suicidal ideations but denies any history of attempts, plan or actual intent. [facility] Medical History Anxiety Alcohol use High cholesterol Gastric reflux Non-smoker History of stress test Home Medications ?Medication ?Instructions ?Recorded ?Last Taken ?Type alprazolam 0.5 mg tablet 0.5 mg PO PRN PRN Anxiety 01/29/22 Unknown History atorvastatin 20 mg tablet 30 mg PO DAILY 01/29/22 Unknown History coenzyme Q10 100 mg capsule 100 mg PO DAILY 01/29/22 01/27/22 History (CoQ-10) melatonin 10 mg tablet,extended 10 mg PO QHS 01/29/22 Unknown History release multivitamin 1 tab PO DAILY 01/29/22 Unknown History omega-3 fatty acids 1,000 mg PO DAILY 01/29/22 01/27/22 History turmeric 400 mg capsule 400 mg PO DAILY 01/29/22 01/27/22 History paroxetine HCl 10 mg tablet 5 mg PO DAILY anxiety 04/08/25 Unknown History Allergy/AdvReac Type Severity Reaction Status Date / Time No Known Allergies Allergy Verified 05/12/25 08:51 Family History Other Alcoholism Surgical History Hx of LASIK Social History Smoking Status: Never smoker alcohol intake: current Alcohol type: wine details: Bottle of wine a day EXAM Physical Exam Const Vital Signs: 05/12/25 08:51 05/12/25 10:40 05/12/25 11:42 Temperature 98.2 F Temperature Source Oral Pulse Rate 92 91 Respiratory Rate 16 Blood Pressure 143/103 H 128/92 H 131/74 H Blood Pressure Mean 116 104 93 Pulse Ox 99 94 92 Oxygen Delivery Method Room Air 05/12/25 11:43 Temperature 98.2 F Temperature Source Pulse Rate 91 Respiratory Rate 16 Blood Pressure 131/74 H Blood Pressure Mean 93 Pulse Ox 92 Oxygen Delivery Method General Appearance ED: NAD and other tearful appearance Resp normal respiratory effort Cardio regular rate GI non-tender Extremity normal to inspection Neuro oriented x3 Sensorium / Orientation: alert Psych Psych Narrative: suicidal ideations, no plan no auditory or visual hallucinations Mood & Affect: depressed MDM MDM MDM Narrative Medical decision making narrative: 54-year-old male history of depression presents with complaints of suicidal ideation and alcohol withdrawal. Patient states that he normally drinks 3 or more glasses of wine daily. Around 10 AM and had a bottle of wine. States that it has been causing a lot of problems with his marriage and he has been having more depression and would like to quit drinking. States that he has been also having a lot of anxiety last took a Xanax this morning which had helped. Denying any history of alcohol withdrawal or delirium tremens or seizures. States that last time he was sober last to the year but relapsed several months ago. Has been having more suicidal ideations but denies any history of attempts, plan or actual intent. Patient appears calm collective tearful affect. Case management consulted to evaluate patient for suicidal ideations and for substance abuse. Patient denies any other recreational drugs other than alcohol use. EKG nondiagnostic for arrhythmia or ischemia. No withdrawal symptoms at this time heart regular rate and rhythm, no fasciculations or tremors. Patient's ethanol level 246. Negative UDS. Spoke with case management who did evaluate patient bedside patient denying any suicidal ideations intent or plan and she does not think is a suicidal risk at this time as he stated it was a fleeting thought. Patient now is admitting to having his last drink this morning at 8 AM. States that he would like to detox from alcohol and did offer inpatient detox program here and is agreeable to admission. Vital stable at this time. Spoke to Dr. Ruiz, hospitalist who agrees to admit patient for further workup and management in the setting of alcohol detox. Lab Data Attestation: I reviewed the patient's lab results. Lab results narrative: Ethanol level 246, no leukocytosis. Elevated LFTs 48 AST in 48 ALT. Negative UDS. Labs: Laboratory Results - last 24 hr 05/12/25 05/12/25 09:07 09:33 WBC 6.8 RBC 4.64 Hgb 15.4 Hct 45.0 MCV 97.0 H MCH 33.2 H MCHC 34.2 RDW Std Deviation 46.7 H RDW Coeff of Darshan 13.1 Plt Count 184 MPV 9.2 Immature Gran % (Auto) 0.400 Neut % (Auto) 62.1 Lymph % (Auto) 29.2 [place] % (Auto) 3.5 Eos % (Auto) 4.1 Baso % (Auto) 0.7 Absolute Neuts (auto) 4.2 Absolute Lymphs (auto) 1.98 Nucleated RBC % 0 Sodium 140 Potassium 4.2 Chloride 97 L Carbon Dioxide 23.8 Anion Gap 19 H BUN 14 Creatinine 0.87 Estim Creat Clear Calc 88.61 Est GFR (MDRD) Non-Af 103 BUN/Creatinine Ratio 15.9 Glucose 113 H Calcium 9.5 Total Bilirubin 0.59 AST 48 H ALT 48 H Alkaline Phosphatase 58 Total Protein 7.5 Albumin 5.0 Globulin 2.4 Albumin/Globulin Ratio 2.1 Urine Opiates Screen NEGATIVE U Buprenorphine Qual NEGATIVE Ur Oxycodone Screen NEGATIVE Urine Methadone Screen NEGATIVE Urine Fentanyl Screen NEGATIVE Ur Barbiturates Screen NEGATIVE Ur Phencyclidine Scrn NEGATIVE Ur Amphetamines Screen NEGATIVE U Benzodiazepines Scrn NEGATIVE Urine Cocaine Screen NEGATIVE U Cannabinoids Screen NEGATIVE Ethyl Alcohol 246.0 H EKG Initial EKG: Attestation: I personally reviewed and interpreted this EKG as follows: Comments: EKG showing normal sinus rhythm. Ventricular rate 84, OH 152, QTc 439. No signs of ST elevation depression or T wave inversions consistent with ischemia Management Discussion w/another healthcare provider: Hospitalist Discharge Plan Dx/Rx/DC Orders Clinical Impression: Encounter for alcohol rehabilitation Disposition Disposition: Acute Care Hospital [facility]
[2025-05-12 09:43] LABS: Hematocrit 45.0 % (40-54); Hemoglobin 15.4 g/dL (13.0-16.5); Immature Granulocytes Count 0.030 X10^3/uL (0.0-0.0); Mean Corp Hgb Conc 34.2 g/dL (32-36); Mean Corpuscular Volume 97.0 fL (80-94); Mean Platelet Vol. 9.2 fl (6.2-12.0); NRBC Flagged by Analyzer 0 % (0-5); Platelet Count 184 K/mm3 (150-450); RBC Distribution Width CV 13.1 % (11.6-14.6); RBC Distribution Width SD 46.7 fl (35.1-43.9); Red Blood Count 4.64 M/mm3 (4.6-6.2); White Blood Count 6.8 K/mm3 (4.4-11.0)
[2025-05-12 10:33] LABS: Alcohol, Blood (Medical)-Serum 246.0 mg/dL (<=10.0)
[2025-05-12 10:33] LABS: Barbiturate Urine NEGATIVE (< 200 ng/mL); Benzodiazepine Urine NEGATIVE (< 200 ng/mL); PCP Urine NEGATIVE (< 25 ng/mL); THC Urine NEGATIVE (< 50 ng/mL)
[2025-05-12 10:34] LABS: AST(SGOT) 48 U/L (<=37); Alanine Aminotransfer ALT/SGPT 48 U/L (<=46); Albumin, Serum 5.0 g/dL (3.5-5.0); Alkaline Phosphatase 58 U/L (40-129); Anion Gap 19 (5-15); BUN 14 mg/dL (4-19); BUN/Creat Ratio 15.9 RATIO (10-20); Calcium,Total 9.5 mg/dL (7.6-11.0); Carbon Dioxide 23.8 mmol/L (21.0-32.0); Chloride 97 mmol/L (98-108); Estimated Creatinine Clearance 88.61 ml/min (50-250); Globulin 2.4 g/dL (2.2-4.2); Glucose 113 mg/dL (70-99); Potassium 4.2 mmol/L (3.3-5.1)
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
--- NOTE | 2025-05-12 11:47 | PCM.HP.STD ---
HPI - General General Date of Admission: 05/12/25 Date of Service: 05/12/25 Chief Complaint: Substance use disorder, chronic alcohol use HPI Narrative BARRY MAHAJAN, is a 54 M came to ED with help with the alcohol substance use. Patient started drinking alcohol at the age of 18 about 7 times during high school. Has been drinking mainly on the weekends 3-4 drinks during college time. Then did not drink in his 20s and started wine in his 30s, 2 glasses every day and then increased to 1 bottle of wine sharing between him and his . Denies other substance use. Currently patient having anxiety, restlessness and tremors. He denies smoking or smokeless cigarette or chewing tobacco. No vaping. In ED, he had a feeling of runaway and lie in isolation but denies any specific suicidal ideation like hurting himself or suicidal attempt. Denies prior history of bipolar disorder or depression. No previous suicidal attempt. He was cleared by oncology social worker no suicidal High-Risk. [facility]LY [facility] Medical History Alcohol abuse Depression Anxiety Alcohol use High cholesterol Gastric reflux Non-smoker History of stress test Home Medications ?Medication ?Instructions ?Recorded ?Last Taken ?Type alprazolam 0.5 mg tablet 0.5 mg PO PRN PRN Anxiety 01/29/22 Unknown History atorvastatin 20 mg tablet 30 mg PO DAILY 01/29/22 Unknown History coenzyme Q10 100 mg capsule 100 mg PO DAILY 01/29/22 01/27/22 History (CoQ-10) melatonin 10 mg tablet,extended 10 mg PO QHS 01/29/22 Unknown History release multivitamin 1 tab PO DAILY 01/29/22 Unknown History omega-3 fatty acids 1,000 mg PO DAILY 01/29/22 01/27/22 History turmeric 400 mg capsule 400 mg PO DAILY supplement 01/29/22 01/27/22 History paroxetine HCl 10 mg tablet 5 mg PO DAILY anxiety 04/08/25 Unknown History cholecalciferol (vitamin D3) 50 50 mcg PO DAILY supplement 05/12/25 Unknown History mcg (2,000 unit) tablet vitamin B complex 1 tab PO DAILY supplement 05/12/25 Unknown History Allergy/AdvReac Type Severity Reaction Status Date / Time No Known Allergies Allergy Verified 05/12/25 08:51 Family History Other Alcoholism Surgical History Hx of LASIK Social History Smoking Status: Never smoker alcohol intake: current Alcohol type: wine details: Bottle of wine a day ROS ROS Narrative Constitutional: Reports fatigue and weakness. No fever. HEENT: Reports systems reviewed and no addt'l complaints, except as documented Respiratory/Chest: No acute shortness of breath or respiratory distress or wheezing. CVS: Denies chest pain pressure tightness. Denies chronic cardiac disease. Gastrointestinal: Denies coffee ground emesis, hematemesis or vomiting Genitourinary: Denies burning urination or new urinary tract symptoms Musculoskeletal: Denies acute joint pain or limited range of motion. No acute injury Neurologic: Denies seizure-like symptoms. skin: No ulcer. No rash Endocrinology: Reports systems reviewed and no addt'l complaints, except as documented Hematologic/Lymphatic: Reports systems reviewed and no addt'l complaints, except as documented Rest 14 ROS are negative except as mentioned in HPI Vital Signs Vital Signs Vital Signs: 05/12/25 08:51 05/12/25 10:40 05/12/25 11:42 Temperature 98.2 F Temperature Source Oral Pulse Rate 92 91 Respiratory Rate 16 Blood Pressure 143/103 H 128/92 H 131/74 H Blood Pressure Mean 116 104 93 Pulse Ox 99 94 92 Oxygen Delivery Method Room Air 05/12/25 11:43 Temperature 98.2 F Temperature Source Pulse Rate 91 Respiratory Rate 16 Blood Pressure 131/74 H Blood Pressure Mean 93 Pulse Ox 92 Oxygen Delivery Method Weight Weight: 148 lb Body Mass Index (BMI) 23.8 Physical Exam Narrative General: Alert, Oriented x3, Cooperative HEENT: Atraumatic, PERRLA, EOMI, Normocephalic. Oral: No Gingival or Mucosal Lesions/ Ulcerations Neck: Supple, No JVD, Negative Carotid Bruits Chest wall/Lungs: Air entry equal in bilateral lung bases. No crepitation/rhonchi Cardiovascular: Regular rate and rhythm, Normal S1,S2, No M/G/R Abdomen: Bowel Sounds Present, Soft, Non Tender, Non-Distended : No dysuria. No renal angle tenderness. No suprapubic tenderness. Extremities: No edema, Capillary Refill Less than 3 Seconds Skin: No rashes, No breakdown Musculoskeletal: No Tenderness to Palpation of Joints or Extremities Neurological: Cranial nerves II-XII grossly intact, DTR 2+/4. No acute focal neurological deficit. Psych/Mental Status: Flat affect, nervous Results Lab / Micro Data 05/12/25 09:33 05/12/25 09:33 Labs: Laboratory Results - last 24 hr 05/12/25 09:07: Urine Opiates Screen NEGATIVE, U Buprenorphine Qual NEGATIVE, Ur Oxycodone Screen NEGATIVE, Urine Methadone Screen NEGATIVE, Urine Fentanyl Screen NEGATIVE, Ur Barbiturates Screen NEGATIVE, Ur Phencyclidine Scrn NEGATIVE, Ur Amphetamines Screen NEGATIVE, U Benzodiazepines Scrn NEGATIVE, Urine Cocaine Screen NEGATIVE, U Cannabinoids Screen NEGATIVE 05/12/25 09:33: WBC 6.8, RBC 4.64, Hgb 15.4, Hct 45.0, MCV 97.0 H, MCH 33.2 H, MCHC 34.2, RDW Std Deviation 46.7 H, RDW Coeff of Darshan 13.1, Plt Count 184, MPV 9.2, Immature Gran % (Auto) 0.400, Neut % (Auto) 62.1, Lymph % (Auto) 29.2, [place] % (Auto) 3.5, Eos % (Auto) 4.1, Baso % (Auto) 0.7, Absolute Neuts (auto) 4.2, Absolute Lymphs (auto) 1.98, Nucleated RBC % 0, Sodium 140, Potassium 4.2, Chloride 97 L, Carbon Dioxide 23.8, Anion Gap 19 H, BUN 14, Creatinine 0.87, Estim Creat Clear Calc 88.61, Est GFR (MDRD) Non-Af 103, BUN/Creatinine Ratio 15.9, Glucose 113 H, Calcium 9.5, Total Bilirubin 0.59, AST 48 H, ALT 48 H, Alkaline Phosphatase 58, Total Protein 7.5, Albumin 5.0, Globulin 2.4, Albumin/Globulin Ratio 2.1, Ethyl Alcohol 246.0 H Assessment & Plan Assessment/Plan (1) Alcohol withdrawal delirium, acute, hyperactive: PLAN: Plan This is 54-year-old gentleman being admitted for acute hyperactive alcohol withdrawal 1. Acute alcohol withdrawal syndrome with history of chronic alcohol use disorder, relapse and tolerance: Patient is being admitted to MedSurg floor. Patient on phenobarbital based order set along with other adjunctive medications gabapentin, Bentyl, Vistaril, clonidine, Klonopin as needed for alcohol withdrawal symptom control. Patient is on thiamine and folate acid. CIWA monitor. renal case manager 180 consulted. Twelve-lead EKG shows NSR 84 bpm. 2. Acute on chronic alcoholic hepatitis: Patient liver enzymes were elevated in the past AST 39 on April 08. AST and L ALT are elevated. Advised to follow-up in GI office 3. Dyslipidemia: On atorvastatin. Continued 4. Mild anxiety and depression: Patient on alprazolam and paroxetine at home. Alprazolam continued low-dose, 0.25 mg 3 times daily as needed for anxiety. Hold paroxetine. 5. DVT prophylaxis, moderate risk: On enoxaparin 40 mL subcu daily Living will/advanced directive/end of life care: Patient does have living will or advanced directive. His is power of work ticket distributor for health. After discussion of benefits/risks procedures involved with full code, DNR CC arrest and DNR CC, the patient opted for full code. Patient does want artificial life support including intubation, tube feed, ventilator and/chest compression, central venous catheter, vasopressor and DC shock if needed Total time spent in [id number] encounter in discussion of advanced directive 17 minutes. Laboratory Results 05/12/25 09:07: Urine Opiates Screen NEGATIVE, U Buprenorphine Qual NEGATIVE, Ur Oxycodone Screen NEGATIVE, Urine Methadone Screen NEGATIVE, Urine Fentanyl Screen NEGATIVE, Ur Barbiturates Screen NEGATIVE, Ur Phencyclidine Scrn NEGATIVE, Ur Amphetamines Screen NEGATIVE, U Benzodiazepines Scrn NEGATIVE, Urine Cocaine Screen NEGATIVE, U Cannabinoids Screen NEGATIVE 05/12/25 09:33: WBC 6.8, RBC 4.64, Hgb 15.4, Hct 45.0, MCV 97.0 H, MCH 33.2 H, MCHC 34.2, RDW Std Deviation 46.7 H, RDW Coeff of Darshan 13.1, Plt Count 184, MPV 9.2, Immature Gran % (Auto) 0.400, Neut % (Auto) 62.1, Lymph % (Auto) 29.2, [place] % (Auto) 3.5, Eos % (Auto) 4.1, Baso % (Auto) 0.7, Absolute Neuts (auto) 4.2, Absolute Lymphs (auto) 1.98, Nucleated RBC % 0, Sodium 140, Potassium 4.2, Chloride 97 L, Carbon Dioxide 23.8, Anion Gap 19 H, BUN 14, Creatinine 0.87, Estim Creat Clear Calc 88.61, Est GFR (MDRD) Non-Af 103, BUN/Creatinine Ratio 15.9, Glucose 113 H, Calcium 9.5, Total Bilirubin 0.59, AST 48 H, ALT 48 H, Alkaline Phosphatase 58, Total Protein 7.5, Albumin 5.0, Globulin 2.4, Albumin/Globulin Ratio 2.1, Ethyl Alcohol 246.0 H 05/12/25 13:45: PT Pending, INR Pending Charges/Coding Visit Charges Inpatient E&M: 21783 Init Hosp L3 Procedures Hospitalists Procedures: 95708 Advncd Care Plan 30 Min
--- NOTE | 2025-05-12 12:47 | ED.RN ---
RN at bedside asking patient to sign the [facility] contract. Patient informed of rules. pt states last time I was in the program they let my coworkers come and visit and that just really pissed me off because now they know what is going on. RN states I am sorry to hear that happened. Being in the program we do not allow visitors. patient states I was very upset. My dad is flying in from [place] and I want him to be able to see me. RN states our program does not allow visitors. I am not quite sure why your coworkers were able to visit but we do have a strict policy against visitors while in this program. Patient hesitant to sign [facility] contract due to circumstances. Patient does sign contract and agrees to plan.
[2025-05-12] MEDS: Lactated Ringers 1,000 ML 125 ML IV (14:15)
[2025-05-12 16:56] LABS: Prothrombin Time (Protime)PT. 13.1 SECONDS (11.7-14.9)
[2025-05-12] MEDS: hydrOXYzine PAM 25 MG Capsule 50 MG PO (19:46)
[2025-05-13 02:00] VITALS: BP 113/69; PULSE 62; RESP 18; TEMP 36.5; O2SAT 96
[2025-05-13 02:42] VITALS: BP 113/69; PULSE 62; RESP 18; TEMP 36.5; O2SAT 96
[2025-05-13 06:36] LABS: AST(SGOT) 37 U/L (<=37); Alanine Aminotransfer ALT/SGPT 35 U/L (<=46); Albumin, Serum 4.1 g/dL (3.5-5.0); Alkaline Phosphatase 44 U/L (40-129); Anion Gap 10 (5-15); BUN 16 mg/dL (4-19); BUN/Creat Ratio 15.8 RATIO (10-20); Calcium,Total 9.0 mg/dL (7.6-11.0); Carbon Dioxide 30.2 mmol/L (21.0-32.0); Chloride 99 mmol/L (98-108); Estimated Creatinine Clearance 74.85 ml/min (50-250); Globulin 1.8 g/dL (2.2-4.2); Glucose 87 mg/dL (70-99); Potassium 3.6 mmol/L (3.3-5.1)
[2025-05-13 07:09] VITALS: BP 116/69; PULSE 66; RESP 16; TEMP 36.6; O2SAT 96
[2025-05-13 08:11] VITALS: BP 119/86; PULSE 70; RESP 16; TEMP 36.2; O2SAT 96
[2025-05-13] MEDS: Thiamine Hydrochloride 100 MG Tablet PO (09:01)
[2025-05-13] MEDS: Cholecalciferol (VIT D3) 25 MCG TABLET (1,000 UNITS) 50 MCG PO (09:01)
--- NOTE | 2025-05-13 09:26 | CASEMGMT ---
Social Work- SW received a call from hospital liason sharing that pt called in and would like to coordinate on d/c planning, as they previously had planned to admit to a rehab facility. Pt would like to coordinate with [facility]. MARCO provided [facility] regional extension service specialist with update on phone call & know of pt request. RODOLFO Pennington
--- NOTE | 2025-05-13 11:37 | DCINST_ITS ---
Discharge Instructions DC O2, CPAP, BIPAP needs Home O2 Discharge instructions: No Follow Up Care Test Results: Test results from this visit will be discussed in further detail at your follow- up appointment, if applicable. Discharge Plan Admission Admit Date/Time: 05/12/25 11:44 Primary Reason for Your Visit: Acute alcohol withdrawal program Attending Provider: Sandoval Ruiz Primary Care Provider: Zach Shaw Discharge Orders/Prescriptions Prescriptions: New nicotine 21 mg/24 hr Patch 24 Hour 21 mg transdermal DAILY Qty: 0 0RF Continued multivitamin Tablet 1 tab PO DAILY atorvastatin 20 mg tablet 30 mg PO DAILY coenzyme Q10 [CoQ-10] 100 mg Capsule 100 mg PO DAILY omega-3 fatty acids Capsule 1,000 mg PO DAILY melatonin 10 mg Tablet Extended Release 10 mg PO QHS turmeric 400 mg Capsule 400 mg PO DAILY paroxetine HCl 10 mg tablet 5 mg PO DAILY vitamin B complex Tablet 1 tab PO DAILY cholecalciferol (vitamin D3) 50 mcg (2,000 unit) tablet 50 mcg PO DAILY Discontinued alprazolam 0.5 mg tablet 0.5 mg PO PRN PRN (Reason: Anxiety) Referrals / Follow Up: Zach Shaw DO [Primary Care Provider] - Disposition Disposition (needs filled in before D/C Order can be placed): DC/Tx to Another Type of HCF
--- NOTE | 2025-05-13 11:40 | PCM.DC.SUM ---
Providers Date of Admission: 05/12/25 Date of Discharge: 05/13/25 Primary Care Physician: Dr. Zach Shaw DO Reason For Visit: ALCOHOL WITHDRAWAL Diagnosis Discharge Diagnosis (1) Alcohol withdrawal delirium, acute, hyperactive: Status: Acute Code(s): F10.931 - Alcohol use, unspecified with withdrawal delirium Plan This is 54-year-old gentleman being admitted for acute hyperactive alcohol withdrawal 1. Acute alcohol withdrawal syndrome with history of chronic alcohol use disorder, relapse and tolerance: Patient is being admitted to MedSur floor. Patient on phenobarbital based order set along with other adjunctive medications gabapentin, Bentyl, Vistaril, clonidine, Klonopin as needed for alcohol withdrawal symptom control. Patient is on thiamine and folate acid. CIWA monitor. live study manager 180 consulted. Twelve-lead EKG shows NSR 84 bpm. 05/13: patient was evaluated by 180 pillowcase sewer, is going to be transferred to inpatient substance use rehab. 2. Acute on chronic alcoholic hepatitis: Patient liver enzymes were elevated in the past AST 39 on April 08. AST and L ALT are elevated. Advised to follow-up in GI office 05/13 advised to follow-up in PCP with liver chemistry 3. Dyslipidemia: On atorvastatin. Continued 4. Mild anxiety and depression: Patient on alprazolam and paroxetine at home. Alprazolam continued low-dose, 0.25 mg 3 times daily as needed for anxiety. Hold paroxetine. 5. DVT prophylaxis, moderate risk: On enoxaparin 40 mL subcu daily Living will/advanced directive/end of life care: Patient does have living will or advanced directive. His is power of real estate paralegal for health. After discussion of benefits/risks procedures involved with full code, DNR CC arrest and DNR CC, the patient opted for full code. Patient does want artificial life support including intubation, tube feed, ventilator and/chest compression, central venous catheter, vasopressor and DC shock if needed Discharge medication reconciliation done. Discharge follow-up instructions completed. Discharge process discussed with the patient and all questions were answered to patient's satisfaction. Follow with PCP in 1 to 2 weeks Total time spent, exact 35 minutes on discharge meds reconciliation, examination, coordination of care with nurses and ancillary staff, review of imaging and blood test and discussion with the patient on follow-up instructions. Laboratory Results 05/12/25 09:07: Urine Opiates Screen NEGATIVE, U Buprenorphine Qual NEGATIVE, Ur Oxycodone Screen NEGATIVE, Urine Methadone Screen NEGATIVE, Urine Fentanyl Screen NEGATIVE, Ur Barbiturates Screen NEGATIVE, Ur Phencyclidine Scrn NEGATIVE, Ur Amphetamines Screen NEGATIVE, U Benzodiazepines Scrn NEGATIVE, Urine Cocaine Screen NEGATIVE, U Cannabinoids Screen NEGATIVE 05/12/25 09:33: WBC 6.8, RBC 4.64, Hgb 15.4, Hct 45.0, MCV 97.0 H, MCH 33.2 H, MCHC 34.2, RDW Std Deviation 46.7 H, RDW Coeff of Darshan 13.1, Plt Count 184, MPV 9.2, Immature Gran % (Auto) 0.400, Neut % (Auto) 62.1, Lymph % (Auto) 29.2, [place] % (Auto) 3.5, Eos % (Auto) 4.1, Baso % (Auto) 0.7, Absolute Neuts (auto) 4.2, Absolute Lymphs (auto) 1.98, Nucleated RBC % 0, Sodium 140, Potassium 4.2, Chloride 97 L, Carbon Dioxide 23.8, Anion Gap 19 H, BUN 14, Creatinine 0.87, Estim Creat Clear Calc 88.61, Est GFR (MDRD) Non-Af 103, BUN/Creatinine Ratio 15.9, Glucose 113 H, Calcium 9.5, Total Bilirubin 0.59, AST 48 H, ALT 48 H, Alkaline Phosphatase 58, Total Protein 7.5, Albumin 5.0, Globulin 2.4, Albumin/Globulin Ratio 2.1, Ethyl Alcohol 246.0 H 05/12/25 13:45: PT Pending, INR Pending Medications at Discharge Home Medications atorvastatin 20 mg tablet 30 mg PO DAILY 01/29/22 coenzyme Q10 100 mg capsule (CoQ-10) 100 mg PO DAILY 01/29/22 melatonin 10 mg tablet,extended release 10 mg PO QHS 01/29/22 multivitamin 1 tab PO DAILY 01/29/22 omega-3 fatty acids 1,000 mg PO DAILY 01/29/22 turmeric 400 mg capsule 400 mg PO DAILY supplement 01/29/22 paroxetine HCl 10 mg tablet 5 mg PO DAILY anxiety 04/08/25 cholecalciferol (vitamin D3) 50 mcg (2,000 unit) tablet 50 mcg PO DAILY supplement 05/12/25 vitamin B complex 1 tab PO DAILY supplement 05/12/25 nicotine 21 mg/24 hr daily transdermal patch 21 mg transdermal DAILY #0 ea 05/13/25 Physical Exam Narrative General: Alert, Oriented x3, Cooperative HEENT: Atraumatic, PERRLA, EOMI, Normocephalic. Oral: No Gingival or Mucosal Lesions/ Ulcerations Neck: Supple, No JVD, Negative Carotid Bruits Chest wall/Lungs: Air entry equal in bilateral lung bases. No crepitation/rhonchi Cardiovascular: Regular rate and rhythm, Normal S1,S2, No M/G/R Abdomen: Bowel Sounds Present, Soft, Non Tender, Non-Distended : No dysuria. No renal angle tenderness. No suprapubic tenderness. Extremities: No edema, Capillary Refill Less than 3 Seconds Skin: No rashes, No breakdown Musculoskeletal: No Tenderness to Palpation of Joints or Extremities Neurological: Cranial nerves II-XII grossly intact, DTR 2+/4. No acute focal neurological deficit. Psych/Mental Status: Flat affect, nervous Weight / BMI Weight Weight: 143 lb Body Mass Index (BMI) 22.5 ABG / Lab / Microbiology Data 05/12/25 09:33 05/13/25 05:19 Laboratory: Laboratory Results - last 24 hr 05/12/25 15:48: PT 13.1, INR 1.0 05/13/25 05:19: Sodium 140, Potassium 3.6, Chloride 99, Carbon Dioxide 30.2, Anion Gap 10, BUN 16, Creatinine 1.03, Estim Creat Clear Calc 74.85, Est GFR (MDRD) Non-Af 87, BUN/Creatinine Ratio 15.8, Glucose 87, Calcium 9.0, Total Bilirubin 1.25, AST 37, ALT 35, Alkaline Phosphatase 44, Total Protein 5.9, Albumin 4.1, Globulin 1.8 L, Albumin/Globulin Ratio 2.3 D/C Instructions DC O2, CPAP, BIPAP Needs Home O2 Discharge instructions: No Meaningful Use Info Meaningful Use Meaningful Use Diagnoses (Choose all that apply): None applicable Discharge Plan Admission Admit Date/Time: 05/12/25 11:44 Primary Reason for Your Visit: Acute alcohol withdrawal program Attending Provider: Sandoval Ruiz Primary Care Provider: Zach Shaw Discharge Orders/Prescriptions Prescriptions: New nicotine 21 mg/24 hr Patch 24 Hour 21 mg transdermal DAILY Qty: 0 0RF Continued multivitamin Tablet 1 tab PO DAILY atorvastatin 20 mg tablet 30 mg PO DAILY coenzyme Q10 [CoQ-10] 100 mg Capsule 100 mg PO DAILY omega-3 fatty acids Capsule 1,000 mg PO DAILY melatonin 10 mg Tablet Extended Release 10 mg PO QHS turmeric 400 mg Capsule 400 mg PO DAILY paroxetine HCl 10 mg tablet 5 mg PO DAILY vitamin B complex Tablet 1 tab PO DAILY cholecalciferol (vitamin D3) 50 mcg (2,000 unit) tablet 50 mcg PO DAILY Discontinued alprazolam 0.5 mg tablet 0.5 mg PO PRN PRN (Reason: Anxiety) Referrals / Follow Up: Zach Shaw DO [Primary Care Provider] - Disposition Disposition (needs filled in before D/C Order can be placed): DC/Tx to Another Type of HCF Charges/Coding Visit Charges Inpatient E&M: 81897 Disch Hosp >30min
--- NOTE | 2025-05-13 12:12 | ADDICTION ---
This mortgage loan underwriter met with PT to conduct ASAM, MSE, AUDIT?assessments and to plan for d/c. PT A+Ox4 and participated actively. All assessments completed and placed in PT's chart. PT plans to f/u with inpatient at [facility]. PT to be transported by [facility] and admitted to residential treatment today 05/13/25. PT family (Justine) updated.
--- NOTE | 2025-05-13 13:11 | PHA.DC.MR.R ---
Pharmacy [facility] has performed discharge medication reconciliation for this patient. The patient's discharge medication list was reviewed for discrepancies and discrepancies were resolved. Medications at Discharge Home Medications atorvastatin 20 mg tablet 30 mg PO DAILY 01/29/22 coenzyme Q10 100 mg capsule (CoQ-10) 100 mg PO DAILY 01/29/22 melatonin 10 mg tablet,extended release 10 mg PO QHS 01/29/22 multivitamin 1 tab PO DAILY 01/29/22 omega-3 fatty acids 1,000 mg PO DAILY 01/29/22 turmeric 400 mg capsule 400 mg PO DAILY supplement 01/29/22 paroxetine HCl 10 mg tablet 5 mg PO DAILY anxiety 04/08/25 cholecalciferol (vitamin D3) 50 mcg (2,000 unit) tablet 50 mcg PO DAILY supplement 05/12/25 vitamin B complex 1 tab PO DAILY supplement 05/12/25 nicotine 21 mg/24 hr daily transdermal patch 21 mg transdermal DAILY #0 ea 05/13/25
[2025-05-13 14:50] VITALS: BP 110/70; PULSE 89; RESP 17; TEMP 36.7; O2SAT 95
== END 2025-05-13 15:05 | disposition other institution (70) | DRG 897 ==
LOC: ED 11:49 → MS3 13:05
PROVIDERS: Admitting Provider Internal Medicine; Emergency Provider Student in an Organized Health Care Education/Training Program; PCP Family Medicine; Visit Provider Internal Medicine
DX: F10.931 Alcohol use, unspecified with withdrawal delirium (principal); E78.5 Hyperlipidemia, unspecified; Z66 Do not resuscitate; K70.10 Alcoholic hepatitis without ascites; F32.A Depression, unspecified; F41.9 Anxiety disorder, unspecified; Y90.8 Blood alcohol level of 240 mg/100 ml or more; Z63.0 Problems in relationship with spouse or partner
CPT/HCPCS: 36415; 80053; 80307; 82077; 85025; 85610; 93005; 99285; A4216